=== PATIENT | male | born 1945 | race Caucasian/White ===

== ENCOUNTER 2017-12-11 22:43 | Observation (INO) | payer MEDICARE, OTHER ==
[2017-12-11] MEDS ORDERED: Albuterol/Ipratropium 3.0-0.5 MG/3 ML Neb Soln NEB ONE (22:47)
[2017-12-11] MEDS ORDERED: methylPREDNISolone Sodium Succinate 125 MG/2 ML SDV IVPUSH ONE (22:47)
[2017-12-11] MEDS ORDERED: Sodium Chloride 0.9% 10 ML Syringe FLUSH PRN (22:47)
[2017-12-11] MEDS ORDERED: Furosemide 40 MG/4 ML VIAL IV ONE (23:38)
[2017-12-12] MEDS ORDERED: cefTRIAXone 1 GM Vial IVPUSH ONE (00:02)
[2017-12-12] MEDS ORDERED: Azithromycin 500 MG Vial ONE (00:12)
[2017-12-12] MEDS ORDERED: Water For Injection, Sterile 10 ML SDV INJECT STA (00:12)
[2017-12-12] MEDS: Azithromycin 500 MG in Sodium Chloride 0.9% 250 ML IV ONE ×3 (00:14→00:50)
[2017-12-12 00:19] LABS: CHLORIDE,CL 97 mmol/L (98-107); SODIUM,NA 130 mmol/L (136-145)
[2017-12-12] MEDS ORDERED: Sodium Chloride 0.9% 250 ML IV ONE (00:28)
[2017-12-12] MEDS ORDERED: guaiFENesin 600 MG Tab.ER PO ONE (00:29)
--- NOTE | 2017-12-12 01:02 | EDM.PDOC ---
ED HPI GENERAL MEDICAL PROBLEM - General Chief Complaint: Respiratory Problem Stated Complaint: Short of Breath Time Seen by Provider: 12/11/17 22:46 Source of Information: Reports: Patient, Family History Limitations: Reports: No Limitations - History of Present Illness INITIAL COMMENTS - FREE TEXT/NARRATIVE: Patient brought in by his with complaints of shortness of breath and cough. He has not seen a medical provider in recent years. He has a history of colon cancer. He does not take any medications except flonase. He is a 2 pack per day smoker since he was a teenager. His reports that he has had a fever for the last couple of days. He endorses chills, cough, difficult sputum production. He denies chest pain, LOC, headache, no blood in urine or stool, having regular bowel and bladder movements. He does have COPD but has not been using any types of medications. Onset: Gradual Duration: Getting Worse Location: Reports: Chest Severity: Moderate Worsens with: Reports: Movement Associated Symptoms: Reports: Cough, cough w sputum, Diaphoresis, Fever/Chills, Shortness of Breath - Related Data Allergies Allergy/AdvReac Type Severity Reaction Status Date / Time No Known Drug Allergies Allergy NKDA Verified 12/12/17 03:24 Home Meds: Home Meds Albuterol [IJD: Albuterol HFA] 2 puff INH Q4H PRN 12/03/16 [History] Fluticasone Propionate [Flonase Allergy Relief] 1 spray NASBOTH BID 12/03/16 [ History] Past Medical History HEENT History: Reports: Impaired Vision Cardiovascular History: Reports: SOB on Exertion Respiratory History: Reports: Bronchitis, Recurrent, SOB Gastrointestinal History: Reports: None Other Immunologic History: history of chemo and radiation in 2001 Oncologic (Cancer) History: Reports: Colon - Past Surgical History HEENT Surgical History: Reports: None Cardiovascular Surgical History: Reports: None Respiratory Surgical History: Reports: None GI Surgical History: Reports: Colonoscopy Other GI Surgeries/Procedures: bowel resection Other Oncologic Surgeries/Procedures: colon resection in 2001 Social & Family History - Tobacco Use Smoking Status *Q: Current Some Day Smoker Years of Tobacco use: 50 Packs/Tins Daily: 2 - Alcohol Use Days Per Week of Alcohol Use: 7 Number of Drinks Per Day: 6 Total Drinks Per Week: 42 - Recreational Drug Use Recreational Drug Use: No ED ROS GENERAL - Review of Systems Review Of Systems: See Below Constitutional: Reports: Fever, Night Sweats HEENT: Reports: No Symptoms Respiratory: Reports: Shortness of Breath, Cough, Sputum Cardiovascular: Reports: No Symptoms Endocrine: Reports: No Symptoms GI/Abdominal: Reports: No Symptoms : Reports: No Symptoms Musculoskeletal: Reports: No Symptoms Skin: Reports: No Symptoms Neurological: Reports: No Symptoms Psychiatric: Reports: No Symptoms Hematologic/Lymphatic: Reports: No Symptoms Immunologic: Reports: No Symptoms ED EXAM, GENERAL - Physical Exam Exam: See Below Exam Limited By: No Limitations General Appearance: Alert, WD/WN, Mild Distress Eye Exam: Bilateral Eye: EOMI, Normal Inspection, PERRL Ears: Normal TMs Nose: Normal Inspection, Normal Mucosa, No Blood Throat/Mouth: Normal Inspection, Normal Lips, Normal Teeth, Normal Gums, Normal Oropharynx, Normal Voice, No Airway Compromise Head: Atraumatic, Normocephalic Neck: Normal Inspection, Supple, Non-Tender, Full Range of Motion Respiratory/Chest: No Respiratory Distress, Rales, Rhonchi Cardiovascular: Normal Peripheral Pulses, Tachycardia Peripheral Pulses: 2+: Posterior Tibial (L), Posterior Tibial (R), Dorsalis Pedis (L), Dorsalis Pedis (R) GI/Abdominal: Normal Bowel Sounds, Soft, Non-Tender, No Organomegaly, No Distention, No Abnormal Bruit, No Mass Back Exam: Normal Inspection, Full Range of Motion, NT Extremities: Normal Inspection, Normal Range of Motion, Non-Tender, Normal Capillary Refill, No Pedal Edema Neurological: Alert, Oriented, CN II-XII Intact, Normal Cognition, Normal Gait, Normal Reflexes, No Motor/Sensory Deficits Psychiatric: Normal Affect, Normal Mood Skin Exam: Warm, Dry, Intact, Normal Color, No Rash Lymphatic: No Adenopathy Course - Vital Signs Last Recorded V/S: Last Vital Signs Temp 37.2 C 12/12/17 05:30 Pulse 88 12/12/17 05:45 Resp 18 12/12/17 05:30 BP 131/56 L 12/12/17 05:30 Pulse Ox 94 L 12/12/17 08:10 - Orders/Labs/Meds Orders: Active Orders 24 hr Category Date Time Status Chest 1V Frontal [CR] Stat Exams 12/11/17 22:47 Taken CULTURE BLOOD [BC] Stat Lab 12/11/17 23:34 Received CULTURE BLOOD [BC] Stat Lab 12/11/17 23:43 Results INFLUENZA A+B AG SCREEN [RM] Stat Lab 12/12/17 00:09 Ordered URINALYSIS W/MICROSCOPIC [UA W/MICROSCOPIC] [URIN] Stat Lab 12/12/17 00:43 Ordered Sodium Chloride 0.9% [Saline Flush] Med 12/11/17 22:47 Active 10 ml FLUSH ASDIRECTED PRN Blood Culture x2 Reflex Set [OM.PC] Stat Oth 12/11/17 23:01 Ordered Saline Lock Insert [OM.PC] Routine Oth 12/11/17 22:47 Ordered Medication Orders Sodium Chloride (Saline Flush) 10 ml FLUSH ASDIRECTED PRN PRN Reason: Keep Vein Open Labs: Laboratory Tests 12/11/17 12/11/17 12/11/17 Range/Units 23:34 23:34 23:34 WBC 19.7 H (4.0-10.0) x10^3/uL RBC 5.21 (4.5-6.0) x10^6/uL Hgb 17.3 (14.0-18.0) g/dL Hct 48.8 (40.0-52.0) % MCV 93.7 H (78.0-93.0) fL MCH 33.2 H (26.0-32.0) pg MCHC 35.5 (32.0-36.0) g/dL RDW Coeff of Yesi 14.0 (10.0-15.0) % Plt Count 176 (130-400) x10^3/uL Add Manual Diff Yes Neutrophils % (Manual) 73 (50-80) % Band Neutrophils % 11 H (0-6) % Lymphocytes % (Manual) 5 L (25-50) % Monocytes % (Manual) 9 (2-11) % Eosinophils % (Manual) 2 (0-4) % Vacuolated Monocytes 1+ slight H Smudge Cells Rare H Toxic Granulation 1+ slight H Platelet Estimate Adequate Giant Platelets Rare H Macrocytosis 1+ slight H Sodium 130 L (136-145) mmol/L Potassium 3.9 (3.5-5.1) mmol/L Chloride 97 L (98-107) mmol/L Carbon Dioxide 25 (21-32) mmol/L Anion Gap 11.9 BUN 15 (7-18) mg/dL Creatinine 1.0 (0.70-1.30) mg/dL Est Cr Clr Drug Dosing TNP Estimated GFR (MDRD) > 60 Glucose 131 H (74-106) mg/dL Lactic Acid (0.4-2.0) mmol/L Calcium 8.7 (8.5-10.1) mg/dL Corrected Calcium 9.50 (8.5-10.1) mg/dL Total Bilirubin 1.4 H (0.2-1.0) mg/dL AST 18 (15-37) U/L ALT 15 L (16-63) U/L Alkaline Phosphatase 70 (46-116) U/L Troponin I < 0.017 (<=0.056) ng/mL C-Reactive Protein 30.7 H (<=0.9) mg/dL NT-Pro-B Natriuret Pep 441 H (<=125) pg/mL Total Protein 7.8 (6.4-8.2) g/dL Albumin 3.0 L (3.4-5.0) g/dL Globulin 4.8 Albumin/Globulin Ratio 0.63 TSH, Ultra Sensitive 2.941 (0.358-3.74) uIU/mL Urine Color (YELLOW) Urine Appearance (CLEAR) Urine pH (5.0-8.0) Ur Specific [place] Urine Protein (NEGATIVE) mg/dL Urine Glucose (UA) (NEGATIVE) mg/dL Urine Ketones (NEGATIVE) mg/dL Urine Occult Blood (NEGATIVE) Urine Nitrite (NEGATIVE) Urine Bilirubin (NEGATIVE) Urine Urobilinogen (0.2) EU/dL Ur Leukocyte Esterase (NEGATIVE) Urine RBC (NOT SEEN) /HPF Urine WBC (NOT SEEN) /HPF Ur Squamous Epith Cells (NEGATIVE) /HPF Urine Bacteria (NEGATIVE) /HPF Hyaline Casts (NEGATIVE) /HPF Granular Casts (NEGATIVE) /HPF Urine Mucus (NEGATIVE) /LPF 12/11/17 12/12/17 Range/Units 23:43 00:43 WBC (4.0-10.0) x10^3/uL RBC (4.5-6.0) x10^6/uL Hgb (14.0-18.0) g/dL Hct (40.0-52.0) % MCV (78.0-93.0) fL MCH (26.0-32.0) pg MCHC (32.0-36.0) g/dL RDW Coeff of Yesi (10.0-15.0) % Plt Count (130-400) x10^3/uL Add Manual Diff Neutrophils % (Manual) (50-80) % Band Neutrophils % (0-6) % Lymphocytes % (Manual) (25-50) % Monocytes % (Manual) (2-11) % Eosinophils % (Manual) (0-4) % Vacuolated Monocytes Smudge Cells Toxic Granulation Platelet Estimate Giant Platelets Macrocytosis Sodium (136-145) mmol/L Potassium (3.5-5.1) mmol/L Chloride (98-107) mmol/L Carbon Dioxide (21-32) mmol/L Anion Gap BUN (7-18) mg/dL Creatinine (0.70-1.30) mg/dL Est Cr Clr Drug Dosing Estimated GFR (MDRD) Glucose (74-106) mg/dL Lactic Acid 1.0 (0.4-2.0) mmol/L Calcium (8.5-10.1) mg/dL Corrected Calcium (8.5-10.1) mg/dL Total Bilirubin (0.2-1.0) mg/dL AST (15-37) U/L ALT (16-63) U/L Alkaline Phosphatase (46-116) U/L Troponin I (<=0.056) ng/mL C-Reactive Protein (<=0.9) mg/dL NT-Pro-B Natriuret Pep (<=125) pg/mL Total Protein (6.4-8.2) g/dL Albumin (3.4-5.0) g/dL Globulin Albumin/Globulin Ratio TSH, Ultra Sensitive (0.358-3.74) uIU/mL Urine Color [place] H (YELLOW) Urine Appearance Slightly cloudy H (CLEAR) Urine pH 5.5 (5.0-8.0) Ur Specific [place] >=1.030 Urine Protein 100 H (NEGATIVE) mg/dL Urine Glucose (UA) Negative (NEGATIVE) mg/dL Urine Ketones Trace H (NEGATIVE) mg/dL Urine Occult Blood Trace-lysed H (NEGATIVE) Urine Nitrite Negative (NEGATIVE) Urine Bilirubin Moderate H (NEGATIVE) Urine Urobilinogen 4.0 H (0.2) EU/dL Ur Leukocyte Esterase Negative (NEGATIVE) Urine RBC 0-5 (NOT SEEN) /HPF Urine WBC 0-5 (NOT SEEN) /HPF Ur Squamous Epith Cells Few H (NEGATIVE) /HPF Urine Bacteria Not seen (NEGATIVE) /HPF Hyaline Casts Many H (NEGATIVE) /HPF Granular Casts Few H (NEGATIVE) /HPF Urine Mucus Moderate H (NEGATIVE) /LPF Meds: Medications Generic Name Dose Route Start Last Admin Trade Name Frelesia PRN Reason Stop Dose Admin Sodium Chloride 10 ml 12/11/17 22:47 Saline Flush FLUSH ASDIRECTED PRN Keep Vein Open Discontinued Medications Generic Name Dose Route Start Last Admin Trade Name Freq PRN Reason Stop Dose Admin Albuterol/Ipratropium 3 ml 12/11/17 22:47 12/11/17 23:00 Duoneb 3.0-0.5 Mg/3 Ml NEB 12/11/17 22:48 3 ml ONETIME ONE Administration Azithromycin Confirm 12/12/17 00:12 12/12/17 00:28 Zithromax Administered 12/12/17 00:13 500 mg Dose Administration 500 mg .ROUTE .STK-MED ONE Ceftriaxone Sodium 1 gm 12/12/17 00:02 12/12/17 00:14 Rocephin IVPUSH 12/12/17 00:03 1 gm ONETIME ONE Administration Furosemide 40 mg 12/11/17 23:38 12/11/17 23:49 Lasix IV 12/11/17 23:39 40 mg ONETIME ONE Administration Guaifenesin 1,200 mg 12/12/17 00:29 12/12/17 00:49 Mucinex PO 12/12/17 00:30 1,200 mg ONETIME ONE Administration Azithromycin 500 mg/ Sodium 250 mls @ 250 mls/hr 12/12/17 00:02 12/12/17 00: 50 Chloride IV 12/12/17 01:01 Not Given ONETIME ONE Methylprednisolone Sodium Succinate 125 mg 12/11/17 22:47 12/11/17 23:00 Solu-Medrol IVPUSH 12/11/17 22:48 125 mg ONETIME ONE Administration Pneumococcal Polyvalent Vaccine 25 mcg 12/12/17 03:10 Pneumovax 23 IM 12/12/17 03:11 .ONCE ONE Sterile Water 10 ml 12/12/17 00:12 12/12/17 00:13 Sterile Water For Injection INJECT 12/12/17 00:13 10 ml ASDIRECTED STA Administration Departure - Departure Time of Disposition: 00:58 Disposition: Refer to Observation Condition: Good Clinical Impression: COPD exacerbation - Discharge Information - My Orders Last 24 Hours: My Active Orders 12/11/17 22:47 Chest 1V Frontal [CR] Stat Sodium Chloride 0.9% [Saline Flush] 10 ml FLUSH ASDIRECTED PRN Saline Lock Insert [OM.PC] Routine 12/11/17 23:01 Blood Culture x2 Reflex Set [OM.PC] Stat 12/11/17 23:34 CULTURE BLOOD [BC] Stat 12/11/17 23:43 CULTURE BLOOD [BC] Stat 12/12/17 00:09 INFLUENZA A+B AG SCREEN [RM] Stat 12/12/17 00:43 URINALYSIS W/MICROSCOPIC [UA W/MICROSCOPIC] [URIN] Stat - Assessment/Plan Last 24 Hours: My Active Orders 12/11/17 22:47 Chest 1V Frontal [CR] Stat Sodium Chloride 0.9% [Saline Flush] 10 ml FLUSH ASDIRECTED PRN Saline Lock Insert [OM.PC] Routine 12/11/17 23:01 Blood Culture x2 Reflex Set [OM.PC] Stat 12/11/17 23:34 CULTURE BLOOD [BC] Stat 12/11/17 23:43 CULTURE BLOOD [BC] Stat 12/12/17 00:09 INFLUENZA A+B AG SCREEN [RM] Stat 12/12/17 00:43 URINALYSIS W/MICROSCOPIC [UA W/MICROSCOPIC] [URIN] Stat
[2017-12-12] MEDS ORDERED: Pneumococcal 23-Valent Conjugate Vaccine 0.5 ML Syringe IM ONE (03:10)
[2017-12-12] MEDS ORDERED: Tiotropium Inhaler 18 MCG Inhalation Powder Cap Kit of 5 INH SCH (09:00)
--- NOTE | 2017-12-12 09:04 | PCM.PN ---
- General Info Date of Service: 12/12/17 Admission Dx/Problem (Free Text): COPD CAP Functional Status: Reports: Pain Controlled - Review of Systems General: Reports: Fever HEENT: Reports: No Symptoms Pulmonary: Reports: Shortness of Breath, Cough, Sputum Cardiovascular: Reports: No Symptoms Gastrointestinal: Reports: No Symptoms Genitourinary: Reports: No Symptoms Musculoskeletal: Reports: No Symptoms Skin: Reports: No Symptoms Neurological: Reports: No Symptoms Psychiatric: Reports: No Symptoms - Patient Data Vitals - Most Recent: Last Vital Signs Temp 37.2 C 12/12/17 05:30 Pulse 88 12/12/17 05:45 Resp 18 12/12/17 05:30 BP 131/56 L 12/12/17 05:30 Pulse Ox 94 L 12/12/17 08:10 Weight - Most Recent: 93.1 kg I&O - Last 24 Hours: Intake & Output 12/11/17 12/12/17 12/12/17 22:59 06:59 14:59 Intake Total 874 360 Output Total 1950 Balance -1076 360 Lab Results Last 24 Hours: Laboratory Results - last 24 hr 12/11/17 12/11/17 12/11/17 Range/Units 23:34 23:34 23:34 WBC 19.7 H (4.0-10.0) x10^3/uL RBC 5.21 (4.5-6.0) x10^6/uL Hgb 17.3 (14.0-18.0) g/dL Hct 48.8 (40.0-52.0) % MCV 93.7 H (78.0-93.0) fL MCH 33.2 H (26.0-32.0) pg MCHC 35.5 (32.0-36.0) g/dL RDW Coeff of Yesi 14.0 (10.0-15.0) % Plt Count 176 (130-400) x10^3/uL Add Manual Diff Yes Neutrophils % (Manual) 73 (50-80) % Band Neutrophils % 11 H (0-6) % Lymphocytes % (Manual) 5 L (25-50) % Monocytes % (Manual) 9 (2-11) % Eosinophils % (Manual) 2 (0-4) % Vacuolated Monocytes 1+ slight H Smudge Cells Rare H Toxic Granulation 1+ slight H Platelet Estimate Adequate Giant Platelets Rare H Macrocytosis 1+ slight H Sodium 130 L (136-145) mmol/L Potassium 3.9 (3.5-5.1) mmol/L Chloride 97 L (98-107) mmol/L Carbon Dioxide 25 (21-32) mmol/L Anion Gap 11.9 BUN 15 (7-18) mg/dL Creatinine 1.0 (0.70-1.30) mg/dL Est Cr Clr Drug Dosing TNP Estimated GFR (MDRD) > 60 Glucose 131 H (74-106) mg/dL Lactic Acid (0.4-2.0) mmol/L Calcium 8.7 (8.5-10.1) mg/dL Corrected Calcium 9.50 (8.5-10.1) mg/dL Total Bilirubin 1.4 H (0.2-1.0) mg/dL AST 18 (15-37) U/L ALT 15 L (16-63) U/L Alkaline Phosphatase 70 (46-116) U/L Troponin I < 0.017 (<=0.056) ng/mL C-Reactive Protein 30.7 H (<=0.9) mg/dL NT-Pro-B Natriuret Pep 441 H (<=125) pg/mL Total Protein 7.8 (6.4-8.2) g/dL Albumin 3.0 L (3.4-5.0) g/dL Globulin 4.8 Albumin/Globulin Ratio 0.63 TSH, Ultra Sensitive 2.941 (0.358-3.74) uIU/mL Urine Color (YELLOW) Urine Appearance (CLEAR) Urine pH (5.0-8.0) Ur Specific [place] Urine Protein (NEGATIVE) mg/dL Urine Glucose (UA) (NEGATIVE) mg/dL Urine Ketones (NEGATIVE) mg/dL Urine Occult Blood (NEGATIVE) Urine Nitrite (NEGATIVE) Urine Bilirubin (NEGATIVE) Urine Urobilinogen (0.2) EU/dL Ur Leukocyte Esterase (NEGATIVE) Urine RBC (NOT SEEN) /HPF Urine WBC (NOT SEEN) /HPF Ur Squamous Epith Cells (NEGATIVE) /HPF Urine Bacteria (NEGATIVE) /HPF Hyaline Casts (NEGATIVE) /HPF Granular Casts (NEGATIVE) /HPF Urine Mucus (NEGATIVE) /LPF 12/11/17 12/12/17 Range/Units 23:43 00:43 WBC (4.0-10.0) x10^3/uL RBC (4.5-6.0) x10^6/uL Hgb (14.0-18.0) g/dL Hct (40.0-52.0) % MCV (78.0-93.0) fL MCH (26.0-32.0) pg MCHC (32.0-36.0) g/dL RDW Coeff of Yesi (10.0-15.0) % Plt Count (130-400) x10^3/uL Add Manual Diff Neutrophils % (Manual) (50-80) % Band Neutrophils % (0-6) % Lymphocytes % (Manual) (25-50) % Monocytes % (Manual) (2-11) % Eosinophils % (Manual) (0-4) % Vacuolated Monocytes Smudge Cells Toxic Granulation Platelet Estimate Giant Platelets Macrocytosis Sodium (136-145) mmol/L Potassium (3.5-5.1) mmol/L Chloride (98-107) mmol/L Carbon Dioxide (21-32) mmol/L Anion Gap BUN (7-18) mg/dL Creatinine (0.70-1.30) mg/dL Est Cr Clr Drug Dosing Estimated GFR (MDRD) Glucose (74-106) mg/dL Lactic Acid 1.0 (0.4-2.0) mmol/L Calcium (8.5-10.1) mg/dL Corrected Calcium (8.5-10.1) mg/dL Total Bilirubin (0.2-1.0) mg/dL AST (15-37) U/L ALT (16-63) U/L Alkaline Phosphatase (46-116) U/L Troponin I (<=0.056) ng/mL C-Reactive Protein (<=0.9) mg/dL NT-Pro-B Natriuret Pep (<=125) pg/mL Total Protein (6.4-8.2) g/dL Albumin (3.4-5.0) g/dL Globulin Albumin/Globulin Ratio TSH, Ultra Sensitive (0.358-3.74) uIU/mL Urine Color [place] H (YELLOW) Urine Appearance Slightly cloudy H (CLEAR) Urine pH 5.5 (5.0-8.0) Ur Specific [place] >=1.030 Urine Protein 100 H (NEGATIVE) mg/dL Urine Glucose (UA) Negative (NEGATIVE) mg/dL Urine Ketones Trace H (NEGATIVE) mg/dL Urine Occult Blood Trace-lysed H (NEGATIVE) Urine Nitrite Negative (NEGATIVE) Urine Bilirubin Moderate H (NEGATIVE) Urine Urobilinogen 4.0 H (0.2) EU/dL Ur Leukocyte Esterase Negative (NEGATIVE) Urine RBC 0-5 (NOT SEEN) /HPF Urine WBC 0-5 (NOT SEEN) /HPF Ur Squamous Epith Cells Few H (NEGATIVE) /HPF Urine Bacteria Not seen (NEGATIVE) /HPF Hyaline Casts Many H (NEGATIVE) /HPF Granular Casts Few H (NEGATIVE) /HPF Urine Mucus Moderate H (NEGATIVE) /LPF Adeel Results Last 24 Hours: Microbiology 12/12/17 00:09 Influenza Type A Antigen Screen - Final Nasal Aspirate, Unspecified NEGATIVE INFLUENZA A VIRUS AG Influenza Type B Antigen Screen - Final NEGATIVE INFLUENZA B VIRUS AG 12/11/17 23:43 Anaerobic Blood Culture - Final Blood - Venous - Lab Draw Med Orders - Current: Current Medications Nicotine (Habitrol) 21 mg TRDERM DAILY CLAU Sodium Chloride (Saline Flush) 10 ml FLUSH ASDIRECTED PRN PRN Reason: Keep Vein Open Tiotropium [place] (Spiriva Handihaler) 18 mcg INH DAILY CLAU Discontinued Medications Albuterol/Ipratropium (Duoneb 3.0-0.5 Mg/3 Ml) 3 ml NEB ONETIME ONE Stop: 12/11/17 22:48 Last Admin: 12/11/17 23:00 Dose: 3 ml Azithromycin (Zithromax) Confirm Administered Dose 500 mg .ROUTE .STK-MED ONE Stop: 12/12/17 00:13 Last Admin: 12/12/17 00:28 Dose: 500 mg Ceftriaxone Sodium (Rocephin) 1 gm IVPUSH ONETIME ONE Stop: 12/12/17 00:03 Last Admin: 12/12/17 00:14 Dose: 1 gm Furosemide (Lasix) 40 mg IV ONETIME ONE Stop: 12/11/17 23:39 Last Admin: 12/11/17 23:49 Dose: 40 mg Guaifenesin (Mucinex) 1,200 mg PO ONETIME ONE Stop: 12/12/17 00:30 Last Admin: 12/12/17 00:49 Dose: 1,200 mg Azithromycin 500 mg/ Sodium (Chloride) 250 mls @ 250 mls/hr IV ONETIME ONE Stop: 12/12/17 01:01 Last Admin: 12/12/17 00:50 Dose: Not Given Methylprednisolone Sodium Succinate (Solu-Medrol) 125 mg IVPUSH ONETIME ONE Stop: 12/11/17 22:48 Last Admin: 12/11/17 23:00 Dose: 125 mg Pneumococcal Polyvalent Vaccine (Pneumovax 23) 25 mcg IM .ONCE ONE Stop: 12/12/17 03:11 Sterile Water (Sterile Water For Injection) 10 ml INJECT ASDIRECTED STA Stop: 12/12/17 00:13 Last Admin: 12/12/17 00:13 Dose: 10 ml - Exam Quality Assessment: Supplemental Oxygen General: Alert, Oriented, Cooperative, No Acute Distress HEENT: Pupils Equal, Pupils Reactive, EOMI, Mucous Membr. Moist/[place] Lungs: Rales, Rhonchi GI/Abdominal Exam: Normal Bowel Sounds, Soft, Non-Tender, No Organomegaly, No Distention, No Abnormal Bruit, No Mass, Pelvis Stable Back Exam: Normal Inspection, Full Range of Motion Extremities: Normal Inspection, Normal Range of Motion, Non-Tender, No Pedal Edema, Normal Capillary Refill Peripheral Pulses: 2+: Posterior Tibial (L), Posterior Tibial (R), Dorsalis Pedis (L), Dorsalis Pedis (R) Skin: Warm, Dry, Intact Neurological: No New Focal Deficit Psy/Mental Status: Alert, Normal Affect, Normal Mood - Problem List & Annotations (1) COPD exacerbation SNOMED Code(s): 487811898 Code(s): J44.1 - CHRONIC OBSTRUCTIVE PULMONARY DISEASE W (ACUTE) EXACERBATION Status: Acute Current Visit: Yes (2) CAP (community acquired pneumonia) SNOMED Code(s): 079958733 Code(s): J18.9 - PNEUMONIA, UNSPECIFIED ORGANISM Status: Acute Priority: Low Current Visit: Yes Qualifiers: Laterality: unspecified laterality Qualified Code(s): J18.9 - Pneumonia, unspecified organism Annotation/Comment:: Continue hydration, IV antibiotics, oxygen administration, prednisone oral, blood count - Problem List Review Problem List Initiated/Reviewed/Updated: Yes - My Orders Last 24 Hours: My Active Orders 12/11/17 22:47 Chest 1V Frontal [CR] Stat Sodium Chloride 0.9% [Saline Flush] 10 ml FLUSH ASDIRECTED PRN Saline Lock Insert [OM.PC] Routine 12/11/17 23:01 Blood Culture x2 Reflex Set [OM.PC] Stat 12/11/17 23:34 CULTURE BLOOD [BC] Stat 12/11/17 23:43 CULTURE BLOOD [BC] Stat 12/12/17 00:09 INFLUENZA A+B AG SCREEN [RM] Stat 12/12/17 00:43 URINALYSIS W/MICROSCOPIC [UA W/MICROSCOPIC] [URIN] Stat 12/12/17 01:02 Patient Status [ADT] Routine Cardiac Monitoring [RC] 02,06,10,14,18,22 12/12/17 08:57 Resuscitation Status Routine 12/12/17 08:58 Patient Status [ADT] Routine Oxygen Therapy [RC] PRN VTE/DVT Education [RC] PER UNIT ROUTINE Vital Signs [RC] Q4H 12/12/17 09:00 Albuterol/Ipratropium [DuoNeb 3.0-0.5 MG/3 ML] 3 ml NEB Q4HRRT PRN Nicotine [Habitrol] 21 mg TRDERM DAILY Tiotropium [Spiriva HandiHaler] 18 mcg INH DAILY 12/12/17 09:01 RT Aerosol Therapy [RC] ASDIRECTED 12/12/17 09:15 Azithromycin [Zithromax] 250 mg PO DAILY cefTRIAXone [Rocephin] 1 gm IVPUSH DAILY 12/12/17 Breakfast Regular Diet [DIET] 12/13/17 08:00 predniSONE 40 mg PO WITHBREAKFAST - Plan Plan:: Continue hydration, IV antibiotics, oxygen administration, prednisone oral, blood count. Check on patient status in the AM.
[2017-12-12] MEDS ORDERED: Albuterol 0.083% 2.5 MG/3 ML Neb Soln NEB PRN (09:15)
[2017-12-12] MEDS ORDERED: Lactated Ringers 1,000 ML IV SCH (09:15)
[2017-12-12] MEDS: Nicotine 21 MG/24 Hr Patch TRDERM SCH (09:31)
[2017-12-12] MEDS: Albuterol/Ipratropium 3.0-0.5 MG/3 ML Neb Soln NEB SCH ×4 (10:20→19:46)
[2017-12-12] MEDS ORDERED: cefTRIAXone 1 GM Vial IVPUSH SCH (20:00)
[2017-12-12] MEDS ORDERED: Azithromycin 250 MG Tab PO SCH (20:00)
[2017-12-13] MEDS: Albuterol/Ipratropium 3.0-0.5 MG/3 ML Neb Soln NEB SCH ×2 (07:47→11:03)
[2017-12-13] MEDS: Nicotine 21 MG/24 Hr Patch TRDERM SCH (07:53)
[2017-12-13] MEDS ORDERED: predniSONE 20 MG Tab PO SCH (08:00)
[2017-12-13 08:08] LABS: CHLORIDE,CL 99 mmol/L (98-107); SODIUM,NA 134 mmol/L (136-145)
[2017-12-13 10:09] VITALS: BP 121/62
--- NOTE | 2017-12-13 10:24 | PCM.DCSUM1 ---
Discharge Summary - Hospital Course Free Text/Narrative:: Pt. presented to ER with complaints of cough and chest congestion. Pt. was experiencing this for several days prior to presenting to the ER. Pt. was mildly dyspneic on arrival. Pt. received nebulizers, steroids, and IV antibiotics during his stay. Pt. has been doing incentive spirometry. He has been able to ambulate without significant increase in dyspnea. - Discharge Data Discharge Date: 12/13/17 Discharge Disposition: Home, Self-Care 01 Condition: Good - Discharge Diagnosis/Problem(s) (1) CAP (community acquired pneumonia) SNOMED Code(s): 768166725 ICD Code: J18.9 - PNEUMONIA, UNSPECIFIED ORGANISM Status: Acute Priority : Low Current Visit: Yes Problem Details: Continue hydration, IV antibiotics , oxygen administration, prednisone oral, blood count Qualifiers: Laterality: unspecified laterality Qualified Code(s): J18.9 - Pneumonia, unspecified organism (2) COPD exacerbation SNOMED Code(s): 969330154 ICD Code: J44.1 - CHRONIC OBSTRUCTIVE PULMONARY DISEASE W (ACUTE) EXACERBATION Status: Acute Current Visit: Yes - Patient Instructions Diet: Regular Diet as Tolerated - Discharge Plan Prescriptions/Med Rec: Azithromycin [IJD: Azithromycin] 250 mg PO DAILY #4 tab Prednisone [IJD: predniSONE] 40 mg PO WITHBREAKFAST #5 tablet Home Medications: Home Meds Albuterol [IJD: Albuterol HFA] 2 puff INH Q4H PRN 12/03/16 [History] Fluticasone Propionate [Flonase Allergy Relief] 1 spray NASBOTH BID 12/03/16 [ History] Azithromycin [IJD: Azithromycin] 250 mg PO DAILY #4 tab 12/13/17 [Rx] Prednisone [IJD: predniSONE] 40 mg PO WITHBREAKFAST #5 tablet 12/13/17 [Rx] Patient Handouts: Crutch Use, Adult, [id number], Acetaminophen; Hydrocodone tablets or capsules, Asthma, Adult, Prednisone tablets Forms: ED Department Discharge Referrals: Leandro Estrella PA-C [Primary Care Provider] - 12/23/17 10:30 am (You have a follow up appt. with Leandro Estrella on December 23, 2017 at 10:30---[facility]) - General Info Functional Status: Reports: Pain Controlled - Review of Systems General: Reports: No Symptoms HEENT: Reports: No Symptoms Pulmonary: Reports: Cough, Wheezing. Denies: Shortness of Breath, Pleuritic Chest Pain, Sputum, Hemoptysis Cardiovascular: Reports: No Symptoms Gastrointestinal: Reports: No Symptoms Genitourinary: Reports: No Symptoms Musculoskeletal: Reports: No Symptoms Skin: Reports: No Symptoms Neurological: Reports: No Symptoms Psychiatric: Reports: No Symptoms - Patient Data Vitals - Most Recent: Last Vital Signs Temp 36.5 C 12/13/17 10:00 Pulse 90 12/13/17 10:00 Resp 16 12/13/17 10:00 BP 121/62 12/13/17 10:00 Pulse Ox 92 L 12/13/17 10:00 Weight - Most Recent: 93.1 kg I&O - Last 24 hours: Intake & Output 12/12/17 12/13/17 12/13/17 22:59 06:59 14:59 Intake Total 180 350 300 Output Total 650 Balance 180 350 -350 Lab Results - Last 24 hrs: Laboratory Results - last 24 hr 12/13/17 12/13/17 12/13/17 Range/Units 07:16 07:16 07:20 WBC 13.6 H (4.0-10.0) x10^3/uL RBC 4.75 (4.5-6.0) x10^6/uL Hgb 15.5 D (14.0-18.0) g/dL Hct 45.1 (40.0-52.0) % MCV 94.9 H (78.0-93.0) fL MCH 32.6 H (26.0-32.0) pg MCHC 34.4 (32.0-36.0) g/dL RDW Coeff of Yesi 14.0 (10.0-15.0) % Plt Count 169 (130-400) x10^3/uL Neut % (Auto) 82.7 H (50.0-80.0) % Lymph % (Auto) 8.6 L (25.0-50.0) % Schley % (Auto) 8.4 (2.0-11.0) % Eos % (Auto) 0.2 (0.0-4.0) % Baso % (Auto) 0.1 L (0.2-1.2) % Sodium 134 L (136-145) mmol/L Potassium 4.3 (3.5-5.1) mmol/L Chloride 99 (98-107) mmol/L Carbon Dioxide 27 (21-32) mmol/L Anion Gap 12.3 (10-20) mmol/L BUN 17 (7-18) mg/dL Creatinine 0.8 (0.70-1.30) mg/dL Est Cr Clr Drug Dosing 88.90 mL/min Estimated GFR (MDRD) > 60 Glucose 107 H (74-106) mg/dL Lactic Acid 0.8 (0.4-2.0) mmol/L Calcium 8.3 L (8.5-10.1) mg/dL C-Reactive Protein 17.2 H (<=0.9) mg/dL MARILYN Results - Last 24 hrs: Microbiology 12/11/17 23:43 Aerobic Blood Culture - Preliminary Blood - Venous - Lab Draw NO GROWTH AFTER 1 DAY Anaerobic Blood Culture - Final 12/11/17 23:34 Aerobic Blood Culture - Preliminary Blood - Venous NO GROWTH AFTER 1 DAY Anaerobic Blood Culture - Preliminary NO GROWTH AFTER 1 DAY 12/12/17 10:57 Gram Stain - Final Sputum - Expectorated Med Orders - Current: Current Medications Albuterol (Proventil Neb Soln) 2.5 mg NEB Q4H PRN PRN Reason: Shortness of Breath Albuterol/Ipratropium (Duoneb 3.0-0.5 Mg/3 Ml) 3 ml NEB QIDRT [facility] Last Admin: 12/13/17 07:47 Dose: 3 ml Azithromycin (Zithromax) 500 mg PO BEDTIME [facility] Last Admin: 12/12/17 19:45 Dose: 500 mg Ceftriaxone Sodium (Rocephin) 1 gm IVPUSH BEDTIME [facility] Last Admin: 12/12/17 19:55 Dose: 1 gm Lactated Ringer's (Ringers, Lactated) 1,000 mls @ 75 mls/hr IV ASDIRECTED [facility] Nicotine (Habitrol) 21 mg TRDERM DAILY [facility] Last Admin: 12/13/17 07:53 Dose: 21 mg Prednisone (Prednisone) 40 mg PO WITHBREAKFAST [facility] Last Admin: 12/13/17 07:54 Dose: 40 mg Sodium Chloride (Saline Flush) 10 ml FLUSH ASDIRECTED PRN PRN Reason: Keep Vein Open Last Admin: 12/12/17 19:50 Dose: 10 ml Discontinued Medications Albuterol/Ipratropium (Duoneb 3.0-0.5 Mg/3 Ml) 3 ml NEB ONETIME ONE Stop: 12/11/17 22:48 Last Admin: 12/11/17 23:00 Dose: 3 ml Azithromycin (Zithromax) Confirm Administered Dose 500 mg .ROUTE .STK-MED ONE Stop: 12/12/17 00:13 Last Admin: 12/12/17 00:28 Dose: 500 mg Ceftriaxone Sodium (Rocephin) 1 gm IVPUSH ONETIME ONE Stop: 12/12/17 00:03 Last Admin: 12/12/17 00:14 Dose: 1 gm Furosemide (Lasix) 40 mg IV ONETIME ONE Stop: 12/11/17 23:39 Last Admin: 12/11/17 23:49 Dose: 40 mg Guaifenesin (Mucinex) 1,200 mg PO ONETIME ONE Stop: 12/12/17 00:30 Last Admin: 12/12/17 00:49 Dose: 1,200 mg Azithromycin 500 mg/ Sodium (Chloride) 250 mls @ 250 mls/hr IV ONETIME ONE Stop: 12/12/17 01:01 Last Admin: 12/12/17 00:50 Dose: Not Given Methylprednisolone Sodium Succinate (Solu-Medrol) 125 mg IVPUSH ONETIME ONE Stop: 12/11/17 22:48 Last Admin: 12/11/17 23:00 Dose: 125 mg Pneumococcal Polyvalent Vaccine (Pneumovax 23) 25 mcg IM .ONCE ONE Stop: 12/12/17 03:11 Last Admin: 12/13/17 07:49 Dose: Not Given Sterile Water (Sterile Water For Injection) 10 ml INJECT ASDIRECTED STA Stop: 12/12/17 00:13 Last Admin: 12/12/17 00:13 Dose: 10 ml - Exam General: Reports: Alert, Oriented HEENT: Reports: Pupils Equal, Pupils Reactive, EOMI, Mucous Membr. Moist/[place] Neck: Reports: Supple Lungs: Reports: Decreased Breath Sounds, Crackles, Wheezing Cardiovascular: Reports: Regular Rate, Regular Rhythm GI/Abdominal Exam: Normal Bowel Sounds, Soft, Non-Tender, No Organomegaly, No Distention, No Abnormal Bruit, No Mass, Pelvis Stable (Male) Exam: Deferred Rectal (Males) Exam: Deferred Back Exam: Reports: Normal Inspection, Full Range of Motion Extremities: Normal Inspection, Normal Range of Motion, Non-Tender, No Pedal Edema, Normal Capillary Refill Skin: Reports: Warm, Dry, Intact Wound/Incisions: Reports: Healing Well Neurological: Reports: No New Focal Deficit Psy/Mental Status: Reports: Alert, Normal Affect, Normal Mood
== END 2017-12-13 12:40 | disposition home or self-care (01) ==
LOC: VM.ED 22:43 → VM.MS 12-12 01:02 → UNDOADMOB 12-12 01:15 → VM.MS 12-12 01:15
PROVIDERS: ADMIT Nurse Practitioner Family; ATTEND Nurse Practitioner Family
DX: J18.9 Pneumonia, unspecified organism (principal); J44.1 Chronic obstructive pulmonary disease with (acute) exacerbation; Z79.2 Long term (current) use of antibiotics; Z79.899 Other long term (current) drug therapy; F17.210 Nicotine dependence, cigarettes, uncomplicated
CPT/HCPCS: 36415; 71045; 71046; 80048; 80053; 81001; 83605; 83880; 84443; 84484; 85025; 86140; 87040; 87070; 87077; 87186; 87205; 87804; 93005; 94640; 94760; 96365; 96375; 96376; 99284-GF; 99285; A9270-GY; G0378; J0456; J0696; J1940; J2930; J7050

== ENCOUNTER 2019-10-04 07:43 | Day surgery (SDC) | payer MEDICARE, OTHER ==
[~2019-10-04 07:43] MED LIST: Sodium Chloride 0.9% 10 ML Syringe FLUSH PRN
[2019-10-04] MEDS: Lactated Ringers 1,000 ML IV SCH (08:31)
[2019-10-04] MEDS ORDERED: Propofol 200 MG/20 ML SDV ONE (09:03)
[2019-10-04] MEDS ORDERED: fentaNYL 100 MCG/2 ML SDV ONE (09:03)
[2019-10-04 11:33] VITALS: BP 90/63; PULSE 63
--- NOTE | 2019-10-04 11:49 | OR ---
PRE-OPERATIVE DIAGNOSES: 1. History of previous colorectal cancer back in 2001. The patient's last colonoscopy was normal back in 2017. 2. The patient has noted some darker spots in the stool lately. POST-OPERATIVE DIAGNOSES: 1. A total of 7 polyps removed today. a. 3 mm polyp x2 at 100 cm, removed using cold forceps. b. 6 mm polyp at 100 cm, removed using hot snare. c. 3 mm and 2 mm polyps at 70 cm, both removed using cold forceps. d. 3 mm and 2 mm polyps at 60 cm, both removed using cold forceps. 2. Mild hemorrhoids. PROCEDURE: Colonoscopy with polypectomy x7 (6 using cold forceps and 1 using hot snare). ANESTHESIA: Monitored anesthesia care. BOWEL PREP: Fair to good. Rakan is a 74-year-old male, who was brought to the endoscopy suite after discussing risks and benefits of the procedure. Informed consent was obtained for conscious sedation and colonoscopy with or without biopsy and/or polypectomy. We also discussed possibility of missed lesions. Pre-procedure exam was unremarkable. IV, oxygen, and monitors were placed. The patient was placed in the left lateral decubitus position. Sedation was administered and a digital rectal exam was performed and unremarkable.. Colonoscope was passed into the rectum and slowly advanced all the way to the cecum. Cecum was viewed and photographed. The colonoscope was slowly withdrawn and the mucosa was closed observed in a direct circumferential manner. The ascending colon was remarkable for 3 mm polyp x2 at 100 cm and 6 mm polyp x1 at 100 cm (as noted above) . The transverse colon was remarkable for 3 mm polyp and 2 mm polyp at 70 cm and 3 mm polyp and 2 mm polyps at 60 cm, all removed using cold forceps. The descending colon was unremarkable. The sigmoid colon was remarkable for rectosigmoid anastomosis. There was some mild irritation from the scope afterwards to this area, but otherwise unremarkable. Retroflexion was performed and rectal mucosa revealed some mild hemorrhoids. Scope was removed. The patient tolerated the procedure well. The patient was monitored until that baseline status. Discharge instructions were reviewed and the patient was discharged in good condition. COMPLICATIONS: None. TOTAL TIME: 30 minutes. ESTIMATED BLOOD LOSS: 1 to 2 mL. RECOMMENDATIONS/FOLLOW-UP: We will await results of path report to determine ideal followup interval. I would like to kindly thank JOSE DANIEL Jose, for this referral. DMB: 10/04/2019 10:42:47 MODL: 10/04/2019 11:40:48 /[id number]
== END 2019-10-04 11:45 | disposition home or self-care (01) ==
LOC: VM.SDS 07:43
PROVIDERS: ATTEND Family Medicine
DX: D12.3 Benign neoplasm of transverse colon (principal); D12.2 Benign neoplasm of ascending colon; K64.9 Unspecified hemorrhoids; Z85.038 Personal history of other malignant neoplasm of large intestine; Z98.890 Other specified postprocedural states
CPT/HCPCS: 00811; 45380; 45384; 45385; 88305; J2704; J3010; J7120

== ENCOUNTER 2020-10-24 13:14 | Emergency (ER) | payer MEDICARE, OTHER ==
--- NOTE | 2020-10-24 14:37 | EDM.PDOC ---
ED HPI GENERAL MEDICAL PROBLEM - General Stated Complaint: abd pain Time Seen by Provider: 10/24/20 14:37 Source of Information: Reports: Patient History Limitations: Reports: No Limitations - History of Present Illness INITIAL COMMENTS - FREE TEXT/NARRATIVE: Patient comes emergency department today from home with complaints of abdominal pain. This patient has had intermittent mid abdominal pain for the past 2 weeks. Last night he had worsening pain in his mid abdomen that kept him up all night and he was unable to sleep. He did have a lung biopsy done yesterday at [facility] for work-up of hemoptysis well as a mass on his right lung. He has no pain in his chest shortness of breath or difficulty breathing. His pain has been constant since last night although it is improving after he gets here. He has no weakness dizziness lightheadedness. No fever no chills. He has had surgery on his colon in the past due to cancer of the colon otherwise no other surgeries in his abdomen. No hematuria dysuria or urinary frequency. No black or tarry stools. No constipation. No COVID exposure no COVID symptoms - Related Data Allergies Allergy/AdvReac Type Severity Reaction Status Date / Time No Known Drug Allergies Allergy NKDA Verified 10/04/19 08:31 Home Meds: Home Meds Fluticasone Propionate [Flonase Allergy Relief] 1 spray NASBOTH BID 12/03/16 [History] Acetaminophen/HYDROcodone [[place] 325-5 MG] 1 tab PO Q4H PRN #20 tablet 10/24/20 [Rx] Past Medical History HEENT History: Reports: Impaired Vision Cardiovascular History: Reports: SOB on Exertion Respiratory History: Reports: Bronchitis, Recurrent, SOB Gastrointestinal History: Reports: Other (See Below) Other Gastrointestinal History: Colon Cancer Musculoskeletal History: Reports: Arthritis Other Immunologic History: history of chemo and radiation in 2001 Oncologic (Cancer) History: Reports: Colon - Infectious Disease History Infectious Disease History: Reports: Novel Coronavirus - Past Surgical History HEENT Surgical History: Reports: None Cardiovascular Surgical History: Reports: None Respiratory Surgical History: Reports: None GI Surgical History: Reports: Colonoscopy Other GI Surgeries/Procedures: bowel resection Other Oncologic Surgeries/Procedures: colon resection in 2001 Social & Family History - Caffeine Use Caffeine Use: Reports: Coffee, Soda ED ROS GENERAL - Review of Systems Review Of Systems: Comprehensive ROS is negative, except as noted in HPI. ED EXAM, GI/ABD - Physical Exam Exam: See Below Exam Limited By: No Limitations General Appearance: Alert, WD/WN, No Apparent Distress Ears: Normal External Exam Nose: Normal Inspection Throat/Mouth: Normal Inspection Head: Atraumatic, Normocephalic Neck: Normal Inspection Respiratory/Chest: No Respiratory Distress, Lungs Clear, Normal Breath Sounds, No Accessory Muscle Use, Chest Non-Tender Cardiovascular: Normal Peripheral Pulses, Regular Rate, Rhythm GI/Abdominal Exam: Normal Bowel Sounds, Soft, Tender (The patient has some mild tenderness by palpation in the epigastric right upper and left upper quadrant. There is no guarding rebound or rigidity. He has normal bowel sounds. The lower aspect of his abdomen is soft nontender nondistended.) (Male) Exam: Deferred Rectal (Males) Exam: Deferred Back Exam: Normal Inspection, Full Range of Motion Extremities: Normal Inspection, Normal Range of Motion, Normal Capillary Refill Neurological: Alert, Oriented, Normal Cognition, No Motor/Sensory Deficits Psychiatric: Normal Affect, Normal Mood Skin Exam: Warm, Dry, Intact, Normal Color, No Rash Course - Orders/Labs/Meds Orders: Active Orders 24 hr Category Date Time Status Lactated Ringers [Ringers, Lactated] 1,000 ml Med 10/24/20 16:37 Active IV ONETIME Lactated Ringers [Ringers, Lactated] 1,000 ml Med 10/24/20 16:37 Active IV ONETIME Sodium Chloride 0.9% [Saline Flush] Med 10/24/20 15:46 Active 10 ml FLUSH ASDIRECTED PRN Peripheral IV Insertion Adult [OM.PC] Stat Oth 10/24/20 15:47 Ordered Medication Orders Lactated Ringer's (Ringers, Lactated) 1,000 mls @ 999 mls/hr IV ONETIME ONE Stop: 10/24/20 17:37 Lactated Ringer's (Ringers, Lactated) 1,000 mls @ 999 mls/hr IV ONETIME ONE Stop: 10/24/20 17:37 Last Admin: 10/24/20 16:39 Dose: 999 mls/hr Documented by: EAMON Sodium Chloride (Saline Flush) 10 ml FLUSH ASDIRECTED PRN PRN Reason: Keep Vein Open Labs: Laboratory Tests 02/26/21 02/26/21 02/26/21 Range/Units 14:33 14:51 14:51 WBC 19.0 H (4.0-10.0) x10^3/uL RBC 5.03 (4.5-6.0) x10^6/uL Hgb 15.9 (14.0-18.0) g/dL Hct 45.4 (40.0-52.0) % MCV 90.3 D (78.0-93.0) fL MCH 31.6 (26.0-32.0) pg MCHC 35.0 (32.0-36.0) g/dL RDW Coeff of Yesi 13.9 (10.0-15.0) % Plt Count 240 (130-400) x10^3/uL Add Manual Diff Yes Neutrophils % (Manual) 79 (50-80) % Band Neutrophils % 4 (0-6) % Lymphocytes % (Manual) 13 L (25-50) % Monocytes % (Manual) 3 (2-11) % Eosinophils % (Manual) 1 (0-4) % Platelet Estimate Adequate Sodium 138 (136-145) mmol/L Potassium 3.9 (3.5-5.1) mmol/L Chloride 101 (98-107) mmol/L Carbon Dioxide 27 (21-32) mmol/L Anion Gap 13.9 (5-15) mmol/L BUN 5 L (7-18) mg/dL Creatinine 0.8 (0.70-1.30) mg/dL Est Cr Clr Drug Dosing TNP Estimated GFR (MDRD) > 60 Glucose 109 H (74-106) mg/dL Lactic Acid (0.4-2.0) mmol/L Calcium 8.8 (8.5-10.1) mg/dL Corrected Calcium 9.52 (8.5-10.1) mg/dL Total Bilirubin 0.6 (0.2-1.0) mg/dL AST 19 (15-37) U/L ALT 19 (16-63) U/L Alkaline Phosphatase 86 (46-116) U/L C-Reactive Protein 1.5 H (<=0.9) mg/dL Total Protein 7.6 (6.4-8.2) g/dL Albumin 3.1 L (3.4-5.0) g/dL Globulin 4.5 Albumin/Globulin Ratio 0.69 Lipase (73-393) U/L Urine Color Dark yellow H (YELLOW) Urine Appearance Clear (CLEAR) Urine pH 7.0 (5.0-8.0) Ur Specific [place] 1.020 Urine Protein 30 H (NEGATIVE) mg/dL Urine Glucose (UA) Negative (NEGATIVE) mg/dL Urine Ketones Negative (NEGATIVE) mg/dL Urine Occult Blood Negative (NEGATIVE) Urine Nitrite Negative (NEGATIVE) Urine Bilirubin Small H (NEGATIVE) Urine Urobilinogen 4.0 H (0.2) EU/dL Ur Leukocyte Esterase Negative (NEGATIVE) Urine RBC 0-5 (NOT SEEN) /HPF Urine WBC 0-5 (NOT SEEN) /HPF Ur Squamous Epith Cells Few H (NEGATIVE) /HPF Urine Bacteria Not seen (NEGATIVE) /HPF Urine Mucus Many H (NEGATIVE) /LPF 10/24/20 10/24/20 Range/Units 14:51 14:51 WBC (4.0-10.0) x10^3/uL RBC (4.5-6.0) x10^6/uL Hgb (14.0-18.0) g/dL Hct (40.0-52.0) % MCV (78.0-93.0) fL MCH (26.0-32.0) pg MCHC (32.0-36.0) g/dL RDW Coeff of Yesi (10.0-15.0) % Plt Count (130-400) x10^3/uL Add Manual Diff Neutrophils % (Manual) (50-80) % Band Neutrophils % (0-6) % Lymphocytes % (Manual) (25-50) % Monocytes % (Manual) (2-11) % Eosinophils % (Manual) (0-4) % Platelet Estimate Sodium (136-145) mmol/L Potassium (3.5-5.1) mmol/L Chloride (98-107) mmol/L Carbon Dioxide (21-32) mmol/L Anion Gap (5-15) mmol/L BUN (7-18) mg/dL Creatinine (0.70-1.30) mg/dL Est Cr Clr Drug Dosing Estimated GFR (MDRD) Glucose (74-106) mg/dL Lactic Acid 1.4 (0.4-2.0) mmol/L Calcium (8.5-10.1) mg/dL Corrected Calcium (8.5-10.1) mg/dL Total Bilirubin (0.2-1.0) mg/dL AST (15-37) U/L ALT (16-63) U/L Alkaline Phosphatase (46-116) U/L C-Reactive Protein (<=0.9) mg/dL Total Protein (6.4-8.2) g/dL Albumin (3.4-5.0) g/dL Globulin Albumin/Globulin Ratio Lipase 50 L (73-393) U/L Urine Color (YELLOW) Urine Appearance (CLEAR) Urine pH (5.0-8.0) Ur Specific [place] Urine Protein (NEGATIVE) mg/dL Urine Glucose (UA) (NEGATIVE) mg/dL Urine Ketones (NEGATIVE) mg/dL Urine Occult Blood (NEGATIVE) Urine Nitrite (NEGATIVE) Urine Bilirubin (NEGATIVE) Urine Urobilinogen (0.2) EU/dL Ur Leukocyte Esterase (NEGATIVE) Urine RBC (NOT SEEN) /HPF Urine WBC (NOT SEEN) /HPF Ur Squamous Epith Cells (NEGATIVE) /HPF Urine Bacteria (NEGATIVE) /HPF Urine Mucus (NEGATIVE) /LPF Meds: Medications Generic Name Dose Route Start Last Admin Trade Name Freq PRN Reason Stop Dose Admin Lactated Ringer's 1,000 mls @ 999 mls/hr 10/24/20 16:37 Ringers, Lactated IV 10/24/20 17:37 ONETIME ONE Lactated Ringer's 1,000 mls @ 999 mls/hr 10/24/20 16:37 10/24/20 16:39 Ringers, Lactated IV 10/24/20 17:37 999 mls/hr ONETIME ONE Administration Sodium Chloride 10 ml 10/24/20 15:46 Saline Flush FLUSH ASDIRECTED PRN Keep Vein Open Discontinued Medications Generic Name Dose Route Start Last Admin Trade Name Freq PRN Reason Stop Dose Admin Hydrocodone Bitart/Acetaminophen 1 packet 10/24/20 17:07 Take Home: Acetam/Hydrocodon 325-5 Mg, 5 Pack PO 10/24/20 17:08 ONETIME ONE Al Hydroxide/Mg Hydroxide 30 ml 10/24/20 14:38 10/24/20 14:43 Gi Cocktail PO 10/24/20 14:39 30 ml ONETIME ONE Administration Iopamidol 100 ml 10/24/20 16:01 10/24/20 16:48 Isovue-300 (61%) IVPUSH 10/24/20 16:02 100 ml ONETIME ONE Administration - Radiology Interpretation Free Text/Narrative:: CT abdomen and pelvis per radiology shows a 78 x 65 x 50 mm pancreatic body mass suspicious for primary pancreatic malignancy. This obstructs the splenic vein and encases branches of the celiac artery. A 30 mm left upper quadrant peritoneal masses compatible with metastatic disease. Indeterminate hypodense and enhancing liver lesions. Liver MRI with and without contrast agent would provide further evaluation. I did review a PET scan that he also had at [facility] on 10-03-20 that not only shows concerning lung mass in the right upper lobe but also a large mass along the dorsal margin of the pancreas at 4.4 x 3.9 cm in size measuring there is an additional suspected metastasis that is identified in the patient's left upper abdomen anterior and lateral to the splenic flexure. No definite metastatic disease to bone. - Re-Assessments/Exams Free Text/Narrative Re-Assessment/Exam: 10/24/20 16:35 Laboratory evaluation shows an elevated white blood cell count at 19.0. Although when I review his [facility] chart in the past couple of weeks he has had a continued elevated white blood cell count 16, 19. Is a normal hemoglobin of 15.9 and a platelet count of 240. His CMP with a BUN of 5 glucose 109 otherwise unremarkable. Lactic acid is normal at 1.4. C-reactive protein mildly elevated at 1.5. His urine has a small amount of bilirubin otherwise noninfectious appearing. X-ray of the abdomen per radiology shows nondilated colonic loops. No small bowel dilation. Free air or pneumatosis. Nonsignificant bowel gas pattern. With his elevated white blood cell count and his abdominal pain a CT abdomen pelvis was ordered. 10/24/20 17:13 I discussed the findings on the CT scan of the concern of the large pancreatic mass. I also reviewed with the patient that he had had a PET scan that also identified this pancreatic mass as well. He was unaware or does not recall anyone discussing with him having this pancreatic mass. This is most likely what is causing his pain recently. I am not finding any other acute causes of his pain today. He has not been set up with oncology yet he reports. We will discharge him home at this time to have him contact his primary care on Tuesday for follow-up. Discharge with hydrocodone. Anything new or worse he is to recheck. He is understanding of this and his questions are answered. Departure - Departure Time of Disposition: 17:07 Disposition: Home, Self-Care 01 Clinical Impression: Pancreatic mass Abdominal pain Qualifiers: Abdominal location: epigastric Qualified Code(s): R10.13 - Epigastric pain - Discharge Information Prescriptions: Acetaminophen/HYDROcodone [[place] 325-5 MG] 1 tab PO Q4H PRN #20 tablet PRN Reason: Pain Instructions: Constipation, Adult, [id number], Pain Medicine Instructions, [id number] Referrals: Leandro Estrelal PA-C [Primary Care Provider] - Additional Instructions: Contact your PCP on tuesday for recheck. For pain over the weekend. [place] 1 tablet every 4 hrs with food as needed for pain. Caution sedation. Take home pack given in the ED and RX sent to [facility]. Return to the ED if new or worsening. - My Orders Last 24 Hours: My Active Orders 10/24/20 15:46 Sodium Chloride 0.9% [Saline Flush] 10 ml FLUSH ASDIRECTED PRN 10/24/20 15:47 Peripheral IV Insertion Adult [OM.PC] Stat 10/24/20 16:37 Lactated Ringers [Ringers, Lactated] 1,000 ml IV ONETIME Lactated Ringers [Ringers, Lactated] 1,000 ml IV ONETIME - Assessment/Plan Last 24 Hours: My Active Orders 10/24/20 15:46 Sodium Chloride 0.9% [Saline Flush] 10 ml FLUSH ASDIRECTED PRN 10/24/20 15:47 Peripheral IV Insertion Adult [OM.PC] Stat 10/24/20 16:37 Lactated Ringers [Ringers, Lactated] 1,000 ml IV ONETIME Lactated Ringers [Ringers, Lactated] 1,000 ml IV ONETIME
[2020-10-24] MEDS ORDERED: GI Cocktail Oral Solution 30 ML PO ONE (14:38)
[2020-10-24 15:17] LABS: CHLORIDE,CL 101 mmol/L (98-107); SODIUM,NA 138 mmol/L (136-145)
[2020-10-24 15:18] LABS: ANION GAP 13.9 mmol/L (5-15)
[2020-10-24] MEDS ORDERED: Sodium Chloride 0.9% 10 ML Syringe FLUSH PRN (15:46)
--- NOTE | 2020-10-24 15:49 | CR ---
[id number] RAD/RAD Abd Flat and Upright 2V EXAM: RAD Abd Flat and Upright 2V INDICATION: ABD PAIN COMPARISON: None. DISCUSSION: Nonspecific bowel gas pattern with multiple gas-filled nondilated colonic loops. No small bowel dilation, free air or pneumatosis is seen. Degenerative changes are noted in the spine. IMPRESSION: 1. Nonspecific bowel gas pattern. Deni Gary MD 10/24/20 154 Thank you for allowing us to participate in the care of your patient.
[2020-10-24] MEDS ORDERED: Iopamidol 612 MG/ML 100 ML Bottle IVPUSH ONE (16:01)
[2020-10-24] MEDS ORDERED: Lactated Ringers 1,000 ML IV ONE ×2 (16:37)
--- NOTE | 2020-10-24 16:54 | CT ---
[id number] CT/CT Abdomen Pelvis W IV EXAM: ABDOMEN AND PELVIS CT WITH CONTRAST INDICATION: ABDOMINAL PAIN MID-ABDOMEN. WBC 19K. COMPARISON: March 29, [address] and September 18, [address] DISCUSSION: A 78 x 65 x 50 mm mass centered in the pancreatic body with encasement of the splenic artery, obstruction of the splenic vein and partial encasement of the common hepatic artery is suspicious for a primary pancreatic malignancy. In the context of a large lung mass a metastasis is also possible but considered less likely. The mass abuts the posterior margin of the left lobe of the liver over an area of about 30 mm and direct invasion is not excluded. The pancreatic duct within the tail the pancreas is mildly dilated to about 4.5 mm. In the left upper quadrant peritoneum adjacent to the splenic flexure of the colon a 30 x 26 mm mass is most consistent with a peritoneal metastasis. A couple of subcentimeter hypodensities in the left lobe of the liver are too small to further characterize. There is a subtle 32 mm enhancing mass in the right lobe of the liver. Liver MRI with and without Eovist contrast agent could provide further evaluation if clinically relevant. There is a small fat-containing umbilical hernia. Small fat-containing bilateral inguinal hernias. Mild bladder wall thickening is nonspecific, but may relate to chronic outlet obstruction. Evidence of prior sigmoid colon resection. Atherosclerotic plaque scattered throughout the aorta and its major branches. Degenerative changes are noted throughout the spine. Nonspecific sclerosis in the right iliac wing adjacent to the sacroiliac joint is similar to the 2011 study. A 35 mm left adrenal nodule is indeterminate by density, but was present in 2011 and has only mildly increased from the previous of 30 mm. General stability favors a benign etiology. The kidneys, right adrenal gland, spleen, gallbladder and bowel are normal in appearance. The appendix is normal in appearance. No free air free fluid. IMPRESSION: 1. 78 x 65 x 50 mm pancreatic body mass suspicious for primary pancreatic malignancy. This obstructs the splenic vein and encases branches of the celiac artery. 2. A 30 mm left upper quadrant peritoneal mass is compatible with metastatic disease. 3. Indeterminate hypodense and enhancing liver lesions. Liver MRI with and without Eovist contrast agent could provide further evaluation. Deni Gary MD 10/24/20 [id number] Thank you for allowing us to participate in the care of your patient.
[2020-10-24] MEDS ORDERED: Take Home: Acetaminophen/HYDROcodone 325-5 MG, 5 Tab Pack PO ONE (17:07)
[2020-10-24 22:06] VITALS: BP 122/75; PULSE 77
== END 2020-10-24 17:34 | disposition home or self-care (01) ==
LOC: VM.ED 13:14
DX: K86.89 Other specified diseases of pancreas (principal); Z79.899 Other long term (current) drug therapy
CPT/HCPCS: 36415; 74019; 74177; 80053; 81001; 83605; 83690; 85025; 86140; 99284; 99284-25; A9270-GY; J7120; Q9967

== ENCOUNTER 2021-03-09 15:08 | Emergency (ER) | payer MEDICARE, OTHER ==
[2021-03-09] MEDS ORDERED: Sodium Chloride 0.9% 10 ML Syringe FLUSH PRN (15:31)
[2021-03-09] MEDS: Furosemide 40 MG/4 ML VIAL IV ONE (15:59)
--- NOTE | 2021-03-09 16:13 | CR ---
[id number] RAD/RAD Chest PA or AP 1V EXAM: FRONTAL CHEST INDICATION: CHEST PAIN. COMPARISON: December 13, 2017. DISCUSSION: 56 mm masslike opacity projecting over the right upper lobe and suspicious for neoplasm. Chest CT with contrast is suggested for further evaluation. [place] overlie the chest bilaterally with no definite pneumothorax. No effusions. Mild left base atelectasis and/or infiltrates. IMPRESSION: 1. 56 mm masslike right upper lobe opacity. This was described on a October 24, [address] and likely represents primary lung malignancy. This finding was not present on the comparison radiograph of 2018. 2. Mild left base atelectasis and/or infiltrates. Deni Gary MD 03/09/21 [id number] Thank you for allowing us to participate in the care of your patient.
[2021-03-09 16:32] LABS: CHLORIDE,CL 97 mmol/L (98-107); SODIUM,NA 133 mmol/L (136-145)
[2021-03-09 16:37] LABS: ANION GAP 7.9 mmol/L (5-15)
[2021-03-09] MEDS: Iopamidol 612 MG/ML 100 ML Bottle IVPUSH ONE (18:01)
--- NOTE | 2021-03-09 18:01 | EDM.PDOC ---
ED HPI GENERAL MEDICAL PROBLEM - General Stated Complaint: CARDIAC ISSUES/shortness of breath Time Seen by Provider: 03/09/21 15:31 Source of Information: Reports: Patient, Family, Old Records, RN Notes Reviewed History Limitations: Reports: No Limitations - History of Present Illness INITIAL COMMENTS - FREE TEXT/NARRATIVE: Patient has lung and pancreatic cancer. He is currently in chemotherapy and has been since January. He last had chemo on the and gets it every 3 weeks. he has been struggling with increasing shortness of breath and lower extermity edema for a week or so. has home oxygen and uses it at night. He has has covid and has had vaccination. He feels more short of breath today, no fevers. DId not bring oxygen with . Onset: Gradual Associated Symptoms: Reports: Shortness of Breath. Denies: Diaphoresis, Fever/Chills, Headaches, Loss of Appetite - Related Data Allergies Allergy/AdvReac Type Severity Reaction Status Date / Time No Known Drug Allergies Allergy NKDA Verified 10/24/20 21:57 Home Meds: Home Meds Fluticasone Propionate [Flonase Allergy Relief] 1 spray NASBOTH BID 12/03/16 [History] Acetaminophen/HYDROcodone [[place] 325-5 MG] 1 tab PO Q4H PRN #20 tablet 10/24/20 [Rx] Furosemide [Lasix] 20 mg PO BID #24 tab 03/09/21 [Rx] Potassium Chloride 20 meq PO DAILY #30 tablet.er 03/09/21 [Rx] Past Medical History HEENT History: Reports: Impaired Vision Cardiovascular History: Reports: SOB on Exertion Respiratory History: Reports: Bronchitis, Recurrent, SOB Gastrointestinal History: Reports: Other (See Below) Other Gastrointestinal History: Colon Cancer Musculoskeletal History: Reports: Arthritis Other Immunologic History: history of chemo and radiation in 2001 Oncologic (Cancer) History: Reports: Colon - Infectious Disease History Infectious Disease History: Reports: Novel Coronavirus - Past Surgical History HEENT Surgical History: Reports: None Cardiovascular Surgical History: Reports: None Respiratory Surgical History: Reports: None GI Surgical History: Reports: Colonoscopy Other GI Surgeries/Procedures: bowel resection Other Oncologic Surgeries/Procedures: colon resection in 2001 Social & Family History - Caffeine Use Caffeine Use: Reports: Coffee, Soda ED ROS GENERAL - Review of Systems Review Of Systems: See Below Constitutional: Reports: Malaise, Weakness, Fatigue HEENT: Reports: No Symptoms Respiratory: Reports: Shortness of Breath. Denies: Pleuritic Chest Pain, Cough, Sputum Cardiovascular: Reports: Palpitations. Denies: Chest Pain, Dyspnea on Exertion Endocrine: Reports: No Symptoms GI/Abdominal: Reports: No Symptoms. Denies: Abdominal Pain : Denies: No Symptoms Musculoskeletal: Denies: No Symptoms Skin: Reports: No Symptoms Neurological: Reports: No Symptoms Psychiatric: Reports: No Symptoms Hematologic/Lymphatic: Reports: No Symptoms ED EXAM, GENERAL - Physical Exam Exam: See Below Exam Limited By: No Limitations General Appearance: Alert, WD/WN, No Apparent Distress Eye Exam: Bilateral Eye: EOMI, PERRL Ears: Normal External Exam Nose: Normal Inspection, Normal Mucosa Throat/Mouth: Normal Inspection, Normal Lips, Normal Teeth, Normal Voice Head: Atraumatic, Normocephalic Neck: Normal Inspection, Supple, Non-Tender Respiratory/Chest: Other (tachypnea). No: Wheezing Cardiovascular: Tachycardia, Systolic Murmur GI/Abdominal: Normal Bowel Sounds Back Exam: Normal Inspection Extremities: Normal Range of Motion, Pedal Edema (3 + to the mid rae b ilaterally) Neurological: Alert, Oriented, CN II-XII Intact, Normal Cognition, No Motor/Sensory Deficits Course - Orders/Labs/Meds Orders: Active Orders 24 hr Category Date Time Status Cardiac Monitoring [RC] . DIRECTED Care 03/09/21 15:31 Active Oxygen Therapy [RC] PRN Care 03/09/21 15:31 Active Pulse Oximetry [RC] CONTINUOUS Care 03/09/21 15:31 Active Sodium Chloride 0.9% [Saline Flush] Med 03/09/21 15:31 Active 10 ml FLUSH ASDIRECTED PRN Peripheral IV Insertion Adult [OM.PC] Stat Oth 03/09/21 15:31 Ordered Medication Orders Sodium Chloride (Sodium Chloride 0.9% 10 Ml Syringe) 10 ml FLUSH ASDIRECTED PRN PRN Reason: Keep Vein Open Labs: Laboratory Tests 03/09/21 03/09/21 03/09/21 Range/Units 15:48 15:48 15:48 WBC 8.1 (4.0-10.0) x10^3/uL RBC 2.50 L (4.5-6.0) x10^6/uL Hgb 8.8 L D (14.0-18.0) g/dL Hct 26.2 L (40.0-52.0) % MCV 104.8 H D (78.0-93.0) fL MCH 35.2 H (26.0-32.0) pg MCHC 33.6 (32.0-36.0) g/dL RDW Coeff of Yesi 16.6 H (10.0-15.0) % Plt Count 108 L D (130-400) x10^3/uL Neut % (Auto) 91.6 H (50.0-80.0) % Lymph % (Auto) 6.4 L (25.0-50.0) % Divide % (Auto) 0.1 L (2.0-11.0) % Eos % (Auto) 1.8 (0.0-4.0) % Baso % (Auto) 0.1 L (0.2-1.2) % PT 10.1 (9.9-12.5) SEC INR 0.9 L (2.0-3.5) D-Dimer, Quantitative 2.07 H (<=0.58) mg/LFEU Sodium 133 L (136-145) mmol/L Potassium 3.9 (3.5-5.1) mmol/L Chloride 97 L (98-107) mmol/L Carbon Dioxide 32 (21-32) mmol/L Anion Gap 7.9 (5-15) mmol/L BUN 13 (7-18) mg/dL Creatinine 0.6 L (0.70-1.30) mg/dL Est Cr Clr Drug Dosing TNP Estimated GFR (MDRD) > 60 Glucose 103 H (70-99) mg/dL Calcium 7.9 L (8.5-10.1) mg/dL Corrected Calcium 10.0 (8.5-10.1) mg/dL Total Bilirubin 0.6 (0.2-1.0) mg/dL AST 33 (15-37) U/L ALT 33 (16-63) U/L Alkaline Phosphatase 93 (46-116) U/L Troponin I High Sens 23 (<=76) ng/L C-Reactive Protein 6.7 H (<=0.9) mg/dL NT-Pro-B Natriuret Pep 554 H (<=450) pg/mL Total Protein 5.9 L (6.4-8.2) g/dL Albumin 1.4 L (3.4-5.0) g/dL Globulin 4.5 Albumin/Globulin Ratio 0.31 Meds: Medications Generic Name Dose Route Start Last Admin Trade Name Freq PRN Reason Stop Dose Admin Sodium Chloride 10 ml 03/09/21 15:31 Sodium Chloride 0.9% 10 Ml Syringe FLUSH ASDIRECTED PRN Keep Vein Open Discontinued Medications Generic Name Dose Route Start Last Admin Trade Name Freq PRN Reason Stop Dose Admin Furosemide 40 mg 03/09/21 15:38 03/09/21 15:59 Furosemide 40 Mg/4 Ml Vial IV 03/09/21 15:39 40 mg ONETIME ONE Administration Iopamidol 100 ml 03/09/21 18:00 03/09/21 18:01 Iopamidol 612 Mg/Ml 100 Ml Bottle IVPUSH 03/09/21 18:01 80 ml ONETIME ONE Administration - Radiology Interpretation Free Text/Narrative:: 56 mm masslike right upper lobe opacity, mild left base atelectasis and or infiltrates Chest CT with no pulmonary embolism, tree in bud infiltrates, right upper lobe mass increased in size from 45 mm to 60 mm, pancreatic and left adrenal masses increased in size. interpreted by radiology - Re-Assessments/Exams Free Text/Narrative Re-Assessment/Exam: 03/09/21 17:56 [facility] [place] [facility], hemoglobin in the 9.5-10.5 range, last check one week ago was 10.3, platelets were 304, now 108, echocardiogram 01/2021, ejection fraction 65%, ascending aortic aneurysm 41.0. given lasix 40 mg IVP for fluid overload. d dimer is elevated cta chest ordered 96% room, air, 99 temp, 115 heart rate, bp 122/62 resp 30 03/09/21 19:03 Long discussion with the patient about his ct results. It appears his masses ar e not responding to treatment. He did get good diuresis from the lasix. Offered him admission for diuresis, or home with lasix bid and potassium po daily. needs close recheck of the electrolytes and recheck of hemoglobin and platelets in a few days. could be chemotherapy related. Maxime wraps placed on the legs and told to wear at most times. Will call primary care and oncology for follow up lori. Offered return, admission, etc at any time. 02/26 Departure - Departure Time of Disposition: 18:50 Disposition: Home, Self-Care 01 Condition: Poor Clinical Impression: Pancreatic mass, Lung mass, Shortness of breath, Anemia, Thrombocytopenia - Discharge Information *PRESCRIPTION DRUG MONITORING PROGRAM REVIEWED*: Not Applicable *COPY OF PRESCRIPTION DRUG MONITORING REPORT IN PATIENT ERICA: Not Applicable Prescriptions: Furosemide [Lasix] 20 mg PO BID #24 tab Potassium Chloride 20 meq PO DAILY #30 tablet.er Instructions: Lung Mass, Shortness of Breath, Adult, [id number] Referrals: Leandro Estrella PA-C [Primary Care Provider] - Additional Instructions: Your hemoglobin is decreased to 8.8 from 10.5 a week ago and your platelets are down to 105 from 300 a week ago. This is probably due to chemotherapy. You have fluid overload due to heart failure and were given a diuretic IV and prescribed a " water pill" duiretic and potassium supplement. You need to have your electrolytes checked in 2-3 days as they may lower due to this medicine. You were given solu medrol to help your lungs. Continued current medications. Use your oxygen at all times to help your shortness of breath. It was discussed that your lung and abdominal cancers are increasing in size. Talk with your oncologist about the need for continued treatment. You are welcome to return to the ED at any time. Elevate your legs and use the maxime wraps as needed, however it is better to keep them on most of the days. - My Orders Last 24 Hours: My Active Orders 03/09/21 15:31 Cardiac Monitoring [RC] . DIRECTED Oxygen Therapy [RC] PRN Pulse Oximetry [RC] CONTINUOUS Sodium Chloride 0.9% [Saline Flush] 10 ml FLUSH ASDIRECTED PRN Peripheral IV Insertion Adult [OM.PC] Stat - Assessment/Plan Last 24 Hours: My Active Orders 03/09/21 15:31 Cardiac Monitoring [RC] . DIRECTED Oxygen Therapy [RC] PRN Pulse Oximetry [RC] CONTINUOUS Sodium Chloride 0.9% [Saline Flush] 10 ml FLUSH ASDIRECTED PRN Peripheral IV Insertion Adult [OM.PC] Stat
--- NOTE | 2021-03-09 18:25 | CT ---
[id number] CT/CTA Chest EXAM: CT ANGIOGRAM CHEST INDICATION: Shortness of breath, lung cancer and elevated d-dimer. COMPARISON: September 18, 2020. DISCUSSION: The pulmonary arteries are normal in appearance with no emboli identified. The 60 x 55 mm right upper lobe mass has increased from the previous of 45 x 36 mm and now contacts the major fissure. Mildly prominent right hilar lymph node, unchanged (15 x 12 mm). Sequela of chronic obstructive pulmonary disease with bronchitis and mild to moderate apical predominant emphysema. Filling defects in the left lower lobe airways likely relating to mucous plugging. Mild scattered tree-in-bud opacities are nonspecific, but may be infectious or inflammatory. Arterial calcifications in the aorta and its major branches. In the imaged upper abdomen partially characterized stenting of the common bile duct with associated pneumobilia. A pancreatic mass is not well characterized, but demonstrates increased encasement of the celiac axis and its major branches. A 41 x 40 mm left adrenal mass has increased from the previous of 25 x 22 mm and is compatible with metastatic disease. Changes of diffuse idiopathic skeletal hyperostosis. IMPRESSION: 1. Negative for pulmonary embolism. 2. Mild multifocal tree-in-bud infiltrates are likely infectious or inflammatory. 3. A right upper lobe mass has increased in size measuring about 60 mm relative to the previous of 45 mm. 4. Pancreatic and left adrenal masses have increased in size. Deni Gary MD 03/09/21 [id number] Thank you for allowing us to participate in the care of your patient.
[2021-03-09] MEDS: methylPREDNISolone Sodium Succinate 125 MG/2 ML SDV IVPUSH ONE (19:07)
[2021-03-09 19:34] VITALS: BP 131/60; PULSE 79
== END 2021-03-09 19:10 | disposition home or self-care (01) ==
LOC: VM.ED 15:08
DX: K86.9 Disease of pancreas, unspecified (principal); J98.4 Other disorders of lung; D64.9 Anemia, unspecified; D69.6 Thrombocytopenia, unspecified; R06.02 Shortness of breath; Z86.16 Personal history of COVID-19
CPT/HCPCS: 36415; 71045; 71275; 80053; 83880; 84484; 85025; 85379; 85610; 86140; 93005; 96374; 96375; 99284; 99285-25; J1940; J2930; Q9967

== ENCOUNTER 2021-03-27 19:40 | Emergency (ER) | payer MEDICARE, OTHER ==
[2021-03-27] MEDS ORDERED: Sodium Chloride 0.9% 10 ML Syringe FLUSH PRN (19:41)
[2021-03-27] MEDS ORDERED: cefTRIAXone 2 GM Vial IVPUSH ONE (19:49)
[2021-03-27] MEDS ORDERED: Lactated Ringers 1,000 ML IV ONE (19:51)
[2021-03-27] MEDS ORDERED: Piperacillin/Tazobactam 3.375 GM in Sodium Chloride 0.9% 100 ML IV ONE (19:59)
--- NOTE | 2021-03-27 20:14 | EDM.PDOC ---
ED HPI GENERAL MEDICAL PROBLEM - General Stated Complaint: abd pain cough Time Seen by Provider: 03/27/21 19:40 Source of Information: Reports: Patient History Limitations: Reports: No Limitations - History of Present Illness INITIAL COMMENTS - FREE TEXT/NARRATIVE: Patient comes emergency department today from home by ambulance with concerns of increased abdominal pain cough and shortness of breath. 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 He is currently receiving outpatient chemotherapy every 3 weeks. Does have a history of COPD pneumonia as well. Today he noted at home that he was having increasing abdominal pain. He took his oxycodone at home without much improvement. He is also complained of low-grade fever and chills. Some shortness of breath and a very rattly loose congested cough. He has had no chest pain. He does have some generalized weakness malaise fatigue. No arthralgias or myalgias. His abdominal pain is primarily in the epigastric region he has chronic abd pain with his cancer but it is worse today and has not had a BM in 5 days. No nausea no vomiting. No hematuria dysuria urinary frequency. No black or tarry stools. Upon EMS arrival the report was that his oxygen saturation was in the low 90s requiring a nonrebreather mask. He was diaphoretic hypotensive with a blood pressure in 90 systolically and a heart rate in the 140s. - Related Data Allergies Allergy/AdvReac Type Severity Reaction Status Date / Time No Known Drug Allergies Allergy NKDA Verified 03/27/21 21:49 Home Meds: Home Meds Fluticasone Propionate [Flonase Allergy Relief] 1 spray NASBOTH BID 12/03/16 [History] Acetaminophen/HYDROcodone [[place] 325-5 MG] 1 tab PO Q4H PRN #20 tablet 10/24/20 [Rx] Furosemide [Lasix] 20 mg PO BID #24 tab 03/09/21 [Rx] Potassium Chloride 20 meq PO DAILY #30 tablet.er 03/09/21 [Rx] Past Medical History HEENT History: Reports: Impaired Vision Cardiovascular History: Reports: SOB on Exertion Respiratory History: Reports: Bronchitis, Recurrent, SOB Gastrointestinal History: Reports: Other (See Below) Other Gastrointestinal History: Colon Cancer Musculoskeletal History: Reports: Arthritis Other Immunologic History: history of chemo and radiation in 2001 Oncologic (Cancer) History: Reports: Colon, Lung - Infectious Disease History Infectious Disease History: Reports: Novel Coronavirus - Past Surgical History HEENT Surgical History: Reports: None Cardiovascular Surgical History: Reports: None Respiratory Surgical History: Reports: None GI Surgical History: Reports: Colonoscopy Other GI Surgeries/Procedures: bowel resection Other Oncologic Surgeries/Procedures: colon resection in 2001 Social & Family History - Family History Family Medical History: Unobtainable - Caffeine Use Caffeine Use: Reports: None ED ROS GENERAL - Review of Systems Review Of Systems: Comprehensive ROS is negative, except as noted in HPI. ED EXAM, SEPSIS - Physical Exam Exam: See Below Text/Narrative:: Audible mild wheezing and a thick congested cough noted. The ambulance sheet is soak in sweat. He is diaphoretic and his extremeties have some mild subtle mottling as well. Nail beds are not cyanotic. Exam Limited By: No Limitations General Appearance: Alert, WD/WN, Moderate Distress Eye Exam: Bilateral Eye: EOMI Ears: Normal External Exam Nose: Normal Inspection Throat/Mouth: No: Normal Inspection (Oral mucosa is dry ) Head: Atraumatic, Normocephalic Neck: Normal Inspection, Supple Respiratory/Chest: Respiratory Distress (mild), Decreased Breath Sounds, Crackles, Rhonchi (Bilaterally), Wheezing (Faint expiratory bilaterally. ) Cardiovascular: Normal Peripheral Pulses, Regular Rate, Rhythm, Tachycardia Peripheral Pulses: 1+: Radial (L), Radial (R), Popliteal (L), Popliteal (R) GI/Abdominal Exam: Normal Bowel Sounds, Soft, Tender (Generalized with guarding generalized and no rebound tenderness) (Male) Exam: Deferred Rectal (Males) Exam: Deferred Back: Normal Inspection, Full Range of Motion Extremities: No: Normal Inspection (Mild mottling noted without cyanosis) Neurological: Alert, Oriented, No Motor/Sensory Deficits Psychiatric: Normal Affect Skin: Intact, No Rash, Cool, Diaphoretic, Pallor Course - Orders/Labs/Meds Orders: Active Orders 24 hr Category Date Time Status EKG Documentation Completion [RC] STAT Care 03/27/21 19:42 Active RT Aerosol Therapy [RC] ASDIRECTED Care 03/27/21 20:15 Active Abdomen Pelvis w Cont [CT] Stat Exams 03/27/21 20:08 Taken CULTURE BLOOD [BC] Stat Lab 03/27/21 19:55 Received CULTURE BLOOD [BC] Stat Lab 03/27/21 20:00 Received Lactated Ringers [Ringers, Lactated] 1,000 ml Med 03/27/21 20:45 Active IV ASDIRECTED Sodium Chloride 0.9% [Saline Flush] Med 03/27/21 19:41 Active 10 ml FLUSH ASDIRECTED PRN Blood Culture x2 Reflex Set [OM.PC] Stat Oth 03/27/21 19:41 Ordered Peripheral IV Insertion Adult [OM.PC] Stat Ot 03/27/21 19:41 Ordered Medication Orders Lactated Ringer's (Ringers, Lactated) 1,000 mls @ 150 mls/hr IV ASDIRECTED CLAU Sodium Chloride (Sodium Chloride 0.9% 10 Ml Syringe) 10 ml FLUSH ASDIRECTED PRN PRN Reason: Keep Vein Open Labs: Laboratory Tests 03/27/21 03/27/21 03/27/21 Range/Units 19:55 19:55 19:55 WBC 1.4 L* (4.0-10.0) x10^3/uL RBC 2.66 L (4.5-6.0) x10^6/uL Hgb 9.2 L (14.0-18.0) g/dL Hct 27.6 L (40.0-52.0) % MCV 103.8 H (78.0-93.0) fL MCH 34.6 H (26.0-32.0) pg MCHC 33.3 (32.0-36.0) g/dL RDW Coeff of Yesi 17.5 H (10.0-15.0) % Plt Count 154 (130-400) x10^3/uL Add Manual Diff Yes Neutrophils % (Manual) 84 H (50-80) % Band Neutrophils % 3 (0-6) % Lymphocytes % (Manual) 10 L (25-50) % Monocytes % (Manual) 1 L (2-11) % Metamyelocytes % 2 H (0) % Platelet Estimate Adequate Hypochromasia 2+ moderate H Anisocytosis 2+ moderate H Macrocytosis 2+ moderate H VBG pH (7.33-7.43) pH VBG pCO2 (41-51) mmHG VBG pO2 mmHG VBG HCO3 (22-29) mmol/L VBG Total CO2 (23-30) mmol/L VBG O2 Saturation % VBG Base Excess ((-2)-3) mmol/L Sodium 133 L (136-145) mmol/L Potassium 4.2 (3.5-5.1) mmol/L Chloride 101 (98-107) mmol/L Carbon Dioxide 25 (21-32) mmol/L Anion Gap 11.2 (5-15) mmol/L BUN 12 (7-18) mg/dL Creatinine 0.9 (0.70-1.30) mg/dL Est Cr Clr Drug Dosing TNP Estimated GFR (MDRD) > 60 Glucose 109 H (70-99) mg/dL Lactic Acid 2.5 H* (0.4-2.0) mmol/L Calcium 7.7 L (8.5-10.1) mg/dL Corrected Calcium 9.5 (8.5-10.1) mg/dL Total Bilirubin 0.8 (0.2-1.0) mg/dL AST 20 (15-37) U/L ALT 17 (16-63) U/L Alkaline Phosphatase 106 (46-116) U/L Troponin I High Sens 16 (<=76) ng/L C-Reactive Protein 18.7 H (<=0.9) mg/dL NT-Pro-B Natriuret Pep (<=450) pg/mL Total Protein 5.6 L (6.4-8.2) g/dL Albumin 1.8 L (3.4-5.0) g/dL Globulin 3.8 Albumin/Globulin Ratio 0.47 Lipase 26 L (73-393) U/L Procalcitonin (0.1-0.50) ng/mL Urine Color (YELLOW) Urine Appearance (CLEAR) Urine pH (5.0-8.0) Ur Specific [place] Urine Protein (NEGATIVE) mg/dL Urine Glucose (UA) (NEGATIVE) mg/dL Urine Ketones (NEGATIVE) mg/dL Urine Occult Blood (NEGATIVE) Urine Nitrite (NEGATIVE) Urine Bilirubin (NEGATIVE) Urine Urobilinogen (0.2) EU/dL Ur Leukocyte Esterase (NEGATIVE) Urine RBC (NOT SEEN) /HPF Urine WBC (NOT SEEN) /HPF Ur Squamous Epith Cells (NOT SEEN) /HPF Amorphous Sediment Urine Bacteria (NOT SEEN) /HPF Urine Mucus (NOT SEEN) /LPF SARS-CoV-2 RNA (ROSIO) (NEGATIVE) 03/27/21 03/27/21 03/27/21 Range/Units 19:55 19:55 20:00 WBC (4.0-10.0) x10^3/uL RBC (4.5-6.0) x10^6/uL Hgb (14.0-18.0) g/dL Hct (40.0-52.0) % MCV (78.0-93.0) fL MCH (26.0-32.0) pg MCHC (32.0-36.0) g/dL RDW Coeff of Yesi (10.0-15.0) % Plt Count (130-400) x10^3/uL Add Manual Diff Neutrophils % (Manual) (50-80) % Band Neutrophils % (0-6) % Lymphocytes % (Manual) (25-50) % Monocytes % (Manual) (2-11) % Metamyelocytes % (0) % Platelet Estimate Hypochromasia Anisocytosis Macrocytosis VBG pH 7.46 H (7.33-7.43) pH VBG pCO2 30 L (41-51) mmHG VBG pO2 53 mmHG VBG HCO3 21 L (22-29) mmol/L VBG Total CO2 22 L (23-30) mmol/L VBG O2 Saturation 90 % VBG Base Excess -2 ((-2)-3) mmol/L Sodium (136-145) mmol/L Potassium (3.5-5.1) mmol/L Chloride (98-107) mmol/L Carbon Dioxide (21-32) mmol/L Anion Gap (5-15) mmol/L BUN (7-18) mg/dL Creatinine (0.70-1.30) mg/dL Est Cr Clr Drug Dosing Estimated GFR (MDRD) Glucose (70-99) mg/dL Lactic Acid (0.4-2.0) mmol/L Calcium (8.5-10.1) mg/dL Corrected Calcium (8.5-10.1) mg/dL Total Bilirubin (0.2-1.0) mg/dL AST (15-37) U/L ALT (16-63) U/L Alkaline Phosphatase (46-116) U/L Troponin I High Sens (<=76) ng/L C-Reactive Protein (<=0.9) mg/dL NT-Pro-B Natriuret Pep 1364 H (<=450) pg/mL Total Protein (6.4-8.2) g/dL Albumin (3.4-5.0) g/dL Globulin Albumin/Globulin Ratio Lipase (73-393) U/L Procalcitonin 0.84 H (0.1-0.50) ng/mL Urine Color (YELLOW) Urine Appearance (CLEAR) Urine pH (5.0-8.0) Ur Specific [place] Urine Protein (NEGATIVE) mg/dL Urine Glucose (UA) (NEGATIVE) mg/dL Urine Ketones (NEGATIVE) mg/dL Urine Occult Blood (NEGATIVE) Urine Nitrite (NEGATIVE) Urine Bilirubin (NEGATIVE) Urine Urobilinogen (0.2) EU/dL Ur Leukocyte Esterase (NEGATIVE) Urine RBC (NOT SEEN) /HPF Urine WBC (NOT SEEN) /HPF Ur Squamous Epith Cells (NOT SEEN) /HPF Amorphous Sediment Urine Bacteria (NOT SEEN) /HPF Urine Mucus (NOT SEEN) /LPF SARS-CoV-2 RNA (ROSIO) (NEGATIVE) 03/27/21 03/27/21 Range/Units 20:25 22:00 WBC (4.0-10.0) x10^3/uL RBC (4.5-6.0) x10^6/uL Hgb (14.0-18.0) g/dL Hct (40.0-52.0) % MCV (78.0-93.0) fL MCH (26.0-32.0) pg MCHC (32.0-36.0) g/dL RDW Coeff of Yesi (10.0-15.0) % Plt Count (130-400) x10^3/uL Add Manual Diff Neutrophils % (Manual) (50-80) % Band Neutrophils % (0-6) % Lymphocytes % (Manual) (25-50) % Monocytes % (Manual) (2-11) % Metamyelocytes % (0) % Platelet Estimate Hypochromasia Anisocytosis Macrocytosis VBG pH (7.33-7.43) pH VBG pCO2 (41-51) mmHG VBG pO2 mmHG VBG HCO3 (22-29) mmol/L VBG Total CO2 (23-30) mmol/L VBG O2 Saturation % VBG Base Excess ((-2)-3) mmol/L Sodium (136-145) mmol/L Potassium (3.5-5.1) mmol/L Chloride (98-107) mmol/L Carbon Dioxide (21-32) mmol/L Anion Gap (5-15) mmol/L BUN (7-18) mg/dL Creatinine (0.70-1.30) mg/dL Est Cr Clr Drug Dosing Estimated GFR (MDRD) Glucose (70-99) mg/dL Lactic Acid (0.4-2.0) mmol/L Calcium (8.5-10.1) mg/dL Corrected Calcium (8.5-10.1) mg/dL Total Bilirubin (0.2-1.0) mg/dL AST (15-37) U/L ALT (16-63) U/L Alkaline Phosphatase (46-116) U/L Troponin I High Sens (<=76) ng/L C-Reactive Protein (<=0.9) mg/dL NT-Pro-B Natriuret Pep (<=450) pg/mL Total Protein (6.4-8.2) g/dL Albumin (3.4-5.0) g/dL Globulin Albumin/Globulin Ratio Lipase (73-393) U/L Procalcitonin (0.1-0.50) ng/mL Urine Color Dark yellow H (YELLOW) Urine Appearance Slightly cloudy H (CLEAR) Urine pH 8.5 H (5.0-8.0) Ur Specific [place] 1.020 Urine Protein 30 H (NEGATIVE) mg/dL Urine Glucose (UA) Negative (NEGATIVE) mg/dL Urine Ketones Negative (NEGATIVE) mg/dL Urine Occult Blood Negative (NEGATIVE) Urine Nitrite Negative (NEGATIVE) Urine Bilirubin Negative (NEGATIVE) Urine Urobilinogen 1.0 (0.2) EU/dL Ur Leukocyte Esterase Negative (NEGATIVE) Urine RBC 0-5 (NOT SEEN) /HPF Urine WBC 0-5 (NOT SEEN) /HPF Ur Squamous Epith Cells Rare (NOT SEEN) /HPF Amorphous Sediment Occasional Urine Bacteria Rare (NOT SEEN) /HPF Urine Mucus Few H (NOT SEEN) /LPF SARS-CoV-2 RNA (ROSIO) Negative (NEGATIVE) Meds: Medications Generic Name Dose Route Start Last Admin Trade Name Freq PRN Reason Stop Dose Admin Lactated Ringer's 1,000 mls @ 150 mls/hr 03/27/21 20:45 Ringers, Lactated IV ASDIRECTED CLAU Sodium Chloride 10 ml 03/27/21 19:41 Sodium Chloride 0.9% 10 Ml Syringe FLUSH ASDIRECTED PRN Keep Vein Open Discontinued Medications Generic Name Dose Route Start Last Admin Trade Name Aimee PRN Reason Stop Dose Admin Albuterol/Ipratropium 3 ml 03/27/21 20:15 Albuterol/Ipratropium 3.0-0.5 Mg/3 Ml Neb Soln NEB 03/27/21 20:16 ONETIME ONE Ceftriaxone Sodium 2 gm 03/27/21 19:49 Ceftriaxone 2 Gm Vial IVPUSH 03/27/21 19:50 STAT ONE Hydromorphone HCl 0.5 mg 03/27/21 20:19 Hydromorphone 0.5 Mg/0.5 Ml Syringe IV 03/27/21 20:20 ONETIME ONE Hydromorphone HCl 1 mg 03/27/21 22:14 Hydromorphone 1 Mg/Ml Syringe IVPUSH 03/27/21 22:15 ONETIME ONE Lactated Ringer's 1,000 mls @ 999 mls/hr 03/27/21 19:51 Ringers, Lactated IV 03/27/21 20:51 ONETIME ONE Piperacillin Sod/Tazobactam 100 mls @ 200 mls/hr 03/27/21 19:59 Sod 3.375 gm/ Sodium Chloride IV 03/27/21 20:28 STAT ONE Vancomycin HCl 1.25 gm/ Premix 250 mls @ 200 mls/hr 03/27/21 20:51 IV 03/27/21 22:05 STAT ONE Iopamidol 100 ml 03/27/21 20:30 03/27/21 21:06 Iopamidol 612 Mg/Ml 100 Ml Bottle IVPUSH 03/27/21 20:31 100 ml ONETIME ONE Administration - Radiology Interpretation Free Text/Narrative:: Chest x-ray per radiology shows 6 cm masslike opacity projecting over the right upper lobe is unchanged. No effusions. Mild left base atelectasis and/or infiltrates. Stable chest. - Re-Assessments/Exams Free Text/Narrative Re-Assessment/Exam: 03/27/21 20:14 Concerns for sepsis right off the bat. Finished the liter of NS from the ambulance and started a 2nd LR wide open to get to 30ml/kg with concerns of septic shock. Blood cultures x 2 Zosyn 3.375Grams IVPB ordered. labs ordered. 03/27/21 20:38 Patient is febrile with a temperature of 100.2. He is neutropenic with a white blood cell count of 1.4. His last CBC just a couple of days ago with a white blood cell count of 6. Although he did receive chemotherapy earlier this week. His lactic acid is mildly elevated at 2.5. His procalcitonin is also elevated at 0.8. The patient did have improvement of his blood pressure initially as well as his heart rate following the 2 L of crystalloid given as above. Vancomycin IV piggyback. The patient is a difficult IV start and took multple attempts by myself to place a large bore IV with the Ultrasound guidance. DuoNeb nebulizer with improvement of his shortness of breath as well as his wheezing and rhonchi. CT abdomen pelvis with concerns of increased abdominal pain in the presence of chronic abdominal pain with his pancreatic metastatic disease. Once he returned from the CT scanner he is still alert and appropriate. His breathing is improved. He still complains of abdominal pain. He has been given some Dilaudid with minimal improvement. He is noted to be hypotensive with a blood pressure 77 systolically. His heart rate is improved but still in the 115's approximately. Continued IV hydration with another 500 mill bolus and initiated Levophed at 0.05mcg/kg/min with a goal blood pressure of >65 MAP. Guajardo catheter was placed with only 200mls returned with 2.5 liters of fluids infused. Blood pressure improved to MAP >65 after the initiation of the Levophed. His mottling has resolved and has better peripheral pulses. I did verify code status with this patient who has never had the discussion with any providers in the past and he has chosen at this time a full code status. CT scan concerns for pneumobilia as well as possibly acute cholecystitis with ruptured gallbladder as well. I called and spoke with Dr. Luis M Moreno critical care surgery at [facility] in [place]. HPI ER COURSE findings and concerns were relayed to Dr. Moreno. He accepted the patient in transfer at this time and no new orders at this time. Dr. Moreno has concerns that this patient may not be a surgical candidate and possibly recommend comfort measures due to all the underlying disease as well as the current concerns of sepsis with septic shock. Dr. Moreno would like me to relay these concerns to the family as well. I discussed with the patient as well as the family that this is a very critical disease process at length with the patient and family. All of the questions that I was able to answer to my ability was completed. They understand the very critical nature of this patient. Transported by ALS ground ambulance for further care management at [facility] in [place]. Departure - Departure Time of Disposition: 20:15 Disposition: DC/Tfer to Acute Hospital 02 Condition: Critical Clinical Impression: Septic shock, Rupture of gallbladder - Discharge Information Referrals: Leandro Estrella PA-C [Primary Care Provider] - Forms: Interfacility Transfer EMTALA Critical Care Note - Critical Care Note Total Time (mins): 90 Comments: 90 minutes of critical care time in direct patient care management placement of ultrasound IVs. Multiple reassessments. Consultation with specialist in [place] as well as discussion with the family and the patient about this very dire critical state of this rather comorbid patient. This does not include separate billable procedures. - My Orders Last 24 Hours: My Active Orders 03/27/21 19:41 Sodium Chloride 0.9% [Saline Flush] 10 ml FLUSH ASDIRECTED PRN Blood Culture x2 Reflex Set [OM.PC] Stat Peripheral IV Insertion Adult [OM.PC] Stat 03/27/21 19:42 EKG Documentation Completion [RC] STAT 03/27/21 19:55 CULTURE BLOOD [BC] Stat 03/27/21 20:00 CULTURE BLOOD [BC] Stat 03/27/21 20:08 Abdomen Pelvis w Cont [CT] Stat 03/27/21 20:15 RT Aerosol Therapy [RC] ASDIRECTED 03/27/21 20:45 Lactated Ringers [Ringers, Lactated] 1,000 ml IV ASDIRECTED - Assessment/Plan Last 24 Hours: My Active Orders 03/27/21 19:41 Sodium Chloride 0.9% [Saline Flush] 10 ml FLUSH ASDIRECTED PRN Blood Culture x2 Reflex Set [OM.PC] Stat Peripheral IV Insertion Adult [OM.PC] Stat 03/27/21 19:42 EKG Documentation Completion [RC] STAT 03/27/21 19:55 CULTURE BLOOD [BC] Stat 03/27/21 20:00 CULTURE BLOOD [BC] Stat 03/27/21 20:08 Abdomen Pelvis w Cont [CT] Stat 03/27/21 20:15 RT Aerosol Therapy [RC] ASDIRECTED 03/27/21 20:45 Lactated Ringers [Ringers, Lactated] 1,000 ml IV ASDIRECTED
[2021-03-27 20:15] LABS: BASE EXCESS VENOUS -2 mmol/L ((-2)-3); BICARBONATE,VENOUS 21 mmol/L (22-29); O2 SATURATION VENOUS 90 %; PCO2 VENOUS 30 mmHG (41-51); PH,VENOUS 7.46 pH (7.33-7.43); PO2 VENOUS 53 mmHG
[2021-03-27] MEDS ORDERED: Albuterol/Ipratropium 3.0-0.5 MG/3 ML Neb Soln NEB ONE (20:15)
[2021-03-27] MEDS ORDERED: HYDROmorphone 0.5 MG/0.5 ML Syringe IV ONE (20:19)
[2021-03-27] MEDS ORDERED: Iopamidol 612 MG/ML 100 ML Bottle IVPUSH ONE (20:30)
[2021-03-27 20:34] LABS: CHLORIDE,CL 101 mmol/L (98-107); SODIUM,NA 133 mmol/L (136-145)
[2021-03-27 20:35] LABS: ANION GAP 11.2 mmol/L (5-15)
--- NOTE | 2021-03-27 20:37 | CR ---
[id number] RAD/RAD Chest Portable EXAM: FRONTAL CHEST INDICATION: HYPOTENSION COMPARISON: March 09, 2021. DISCUSSION: 6 cm masslike opacity projecting over the right upper lobe is unchanged. No effusions. Mild left base atelectasis and/or infiltrates. IMPRESSION: Stable chest. Mo Pantoja DO 03/27/[id number] Thank you for allowing us to participate in the care of your patient.
[2021-03-27] MEDS ORDERED: Lactated Ringers 1,000 ML IV SCH (20:45)
[2021-03-27] MEDS ORDERED: VANCOmycin 1.25 GM/250 ML 1.25 GM in Premix Bag 1 BAG IV ONE (20:51)
[2021-03-27] MEDS ORDERED: Norepinephrine 4 MG in Dextrose 5% in Water 246 ML IV SCH ×2 (21:30)
[2021-03-27] MEDS ORDERED: HYDROmorphone 1 MG/ML Syringe IVPUSH ONE (22:14)
[2021-03-28] MEDS ORDERED: Norepinephrine 4 MG in Dextrose 5% in Water 246 ML IV SCH ×2 (05:15)
--- NOTE | 2021-03-28 12:31 | CT ---
[id number] CT/CT Abdomen Pelvis W IV EXAM: CT Abdomen Pelvis W IV CLINICAL DATA: ABDOMINAL PAIN, SEPSIS. COMPARISON STUDY: March 29, 2011. FINDINGS: Dependent atelectasis at the lung bases bilaterally. Gallbladder demonstrates mild wall thickening. No definite stones are identified. Small amount of free fluid within the abdomen and pelvis. Pneumobilia related to biliary/pancreatic duct stent which appears well-positioned. Additionally there is a small amount of air within the cystic duct. Mild periportal edema. Numerous prominent loops of small bowel which appear fluid-filled. These measure up to 3.4 cm. No pneumatosis. There appears to be a transition point within the left lower quadrant. There is gas and stool within the colon. Post surgical changes of the distal colon. 3.1 cm left adrenal nodule with a few scattered calcifications. This is incompletely evaluated on this study however was seen on study from March 29, 2011 and has not significantly changed. The kidneys, spleen and right adrenal gland are unremarkable. Scattered changes of spondylosis the spine. No fracture or osseous lesion. IMPRESSION: 1. Multiple fluid distended loops of small bowel with transition point in the left lower quadrant. There is gas and stool within the colon. Findings suggest at least a partial high-grade small bowel obstruction. 2. Small amount of free fluid within the abdomen and pelvis. 3. Mild wall prominence of the gallbladder. No definite stones are identified. 4. Biliary/pancreatic duct stent in place. There is pneumobilia without significant biliary ductal dilatation. 5. Mild periportal edema. Mo Pantoja DO 03/28/21 0608 Thank you for allowing us to participate in the care of your patient.
--- NOTE | 2021-04-01 13:52 | PCM.EKG ---
#1 Interpretation EKG Date: 03/27/21 Time: 19:54 Rhythm: NSR Rate (Beats/Min): 129 [place]: Normal P-Wave: Present QRS: Normal ST-T: Normal QT: Normal Comparison: NA - No Prior EKG
== END 2021-03-27 22:50 | disposition short-term general hospital (02) ==
LOC: VM.ED 19:40
DX: A41.9 Sepsis, unspecified organism (principal); R65.21 Severe sepsis with septic shock; K82.2 Perforation of gallbladder; R74.02 Elevation of levels of lactic acid dehydrogenase [LDH]; M19.90 Unspecified osteoarthritis, unspecified site; Z79.899 Other long term (current) drug therapy; Z20.822 Contact with and (suspected) exposure to COVID-19
CPT/HCPCS: 36415; 51702; 71045; 74177; 80053; 81001; 82803; 83605; 83690; 83880; 84145; 84484; 85025; 86140; 87040; 87077; 87186; 93005; 94640; 96365; 96367; 96368; 96375; 96376; 99284; 99291-25; J1170; J2543; J3370; J7120; J7620-GY; Q9967; U0002